=== PATIENT | female | born 1955 | race Caucasian/White ===

== ENCOUNTER → 2016-06-05 | Outpatient (CLI) | payer OTHER ==
[2016-06-05 17:14] LABS: HSV I IgG Interp POSITIVE (NEGATIVE); HSV II IgG Interp NEGATIVE (NEGATIVE)
== END | disposition home or self-care (01) ==
LOC: LABWHC1 10:17
PROVIDERS: ATTEND Obstetrics & Gynecology
DX: N76.2 Acute vulvitis (principal)
CPT/HCPCS: 36415; 86694; 86695; 86696

== ENCOUNTER → 2016-11-17 | Outpatient (CLI) | payer OTHER ==
--- NOTE | 2016-11-21 07:36 | MM ---
Reason for exam: screening (asymptomatic). Last mammogram was performed 2 years and 2 months ago. History: Patient is postmenopausal. Family history of premenopausal breast cancer in 2 maternal aunts and breast cancer in paternal grandmother. Benign stereotactic core biopsy of the left breast, September 27, 1999. Benign stereotactic core biopsy of the right breast, September 27, 1999. Core biopsy of the left breast. Core biopsy of the right breast. Excisional biopsy of the left breast. Took hormonal contraceptives for 10 years beginning at age 14. Physical Findings: A clinical breast exam by your physician is recommended on an annual basis and results should be correlated with mammographic findings. MG 3D Screening Mammo W/Cad Bilateral CC and MLO view(s) were taken. Prior study comparison: September 25, 2014, bilateral MG diagnostic mammo w CAD KATE. September 18, 2013, right breast MG work up mamm w CAD RT. The breast tissue is heterogeneously dense. This may lower the sensitivity of mammography. Finding: There are stable typically benign calcifications in both breasts. Bilateral biopsy markers. No significant changes in finding since September 25, 2014 and September 18, 2013. ASSESSMENT: Benign, BI-RAD 2 RECOMMENDATION: Routine screening mammogram of both breasts in 1 year.
== END | disposition home or self-care (01) ==
LOC: RADMAMWWP 09:54
PROVIDERS: ATTEND Family Medicine
DX: Z12.31 Encounter for screening mammogram for malignant neoplasm of breast (principal)
CPT/HCPCS: 77063; G0202

== ENCOUNTER 2018-06-19 19:34 | Inpatient (IN) | payer MEDICARE, OTHER ==
[2018-06-19] MEDS ORDERED: SODIUM CHLORIDE 0.9% 1,000 ML IV STA (20:56)
[2018-06-19] MEDS ORDERED: HYDROmorphone 0.5 MG/0.5 ML SYRINGE IVP STA (20:56)
[2018-06-19] MEDS ORDERED: KETOROLAC 30 MG/ML 1 ML VIAL IVP STA (20:56)
[2018-06-19] MEDS ORDERED: ONDANSETRON 4 MG/2 ML VIAL IVP STA ×2 (21:22→22:02)
--- NOTE | 2018-06-19 21:24 | ED ---
Abdominal Pain HPI - General Chief Complaint: Abdominal Pain Stated Complaint: Kidney infection, vomiting Time Seen by Provider: 06/19/18 20:43 Source: patient Mode of arrival: wheelchair Limitations: no limitations - History of Present Illness Initial Comments: 63-year-old female patient presents to the emergency department today for evaluation of left flank pain, left-sided abdominal pain, and vomiting. Patient states she was seen and evaluated by both the emergency department at [facility] in her primary care physician for similar symptoms approximately 8 days ago. She was diagnosed with a kidney infection and started on Cipro. States she started this medication on Sunday was starting to feel better than today symptoms returned. She does report hematuria. Patient states that she has been unable to keep down any food or fluids since early this morning. Vomitus is bilious. She denies any hematochezia or melena. Denies any known fevers but states she is chilled. Patient denies any recent rash, shortness breath, chest pain, numbness, tingling, dizziness, weakness, headache, visual changes, or any other complaints. - Related Data Home Medications Medication Instructions Recorded Confirmed ALPRAZolam [Xanax] 1 mg PO HS 01/09/15 06/19/18 QUEtiapine [SEROquel] 50 mg PO HS 01/09/15 06/19/18 Nadolol [Corgard] 50 mg PO HS 03/02/15 06/19/18 Ciprofloxacin HCl [Cipro] 500 mg PO BID 06/19/18 06/19/18 Allergies Allergy/AdvReac Type Severity Reaction Status Date / Time Anesthetics - Amide Type Allergy Nausea Verified 06/19/18 21:31 meperidine HCl [From Demerol] AdvReac Nausea & Verified 06/19/18 21:31 Vomiting morphine AdvReac Nausea & Verified 06/19/18 21:31 Vomiting Review of Systems ROS Statement: Those systems with pertinent positive or pertinent negative responses have been documented in the HPI. ROS Other: All systems not noted in ROS Statement are negative. Past Medical History Past Medical History: GERD/Reflux, Hypertension, Osteoarthritis (OA), Sleep Apnea/CPAP/BIPAP Additional Past Medical History / Comment(s): lyme disease, just started taking something for BP & tachycardia, had stress test today, hx. kidney stones History of Any Multi-Drug Resistant Organisms: None Reported Past Surgical History: Cholecystectomy, Hysterectomy, Orthopedic Surgery, Tonsillectomy Additional Past Surgical History / Comment(s): right foot surgery 2012, right knee, rotator cuff repair Past Anesthesia/Blood Transfusion Reactions: Previous Problems w/ Anesthesia, Postoperative Nausea & Vomiting (PONV) Additional Past Anesthesia/Blood Transfusion Reaction / Comment(s): elevated BP w/anesthesia per pt. Past Psychological History: Bipolar Smoking Status: Never smoker - Past Family History Father Family Medical History: Cancer General Exam Limitations: no limitations General appearance: alert, in no apparent distress, other (This is a well- developed, well-nourished adult female patient in no acute distress. Vital signs upon presentation are temperature 98.8F, pulse 82, respirations 18, blood pressure 115/82, pulse ox 100% on room air.) Eye exam: Present: normal appearance, PERRL, EOMI. Absent: scleral icterus, conjunctival injection, periorbital swelling ENT exam: Present: normal exam, normal oropharynx, mucous membranes moist Respiratory exam: Present: normal lung sounds bilaterally. Absent: respiratory distress, wheezes, rales, rhonchi, stridor Cardiovascular Exam: Present: regular rate, normal rhythm, normal heart sounds. Absent: systolic murmur, diastolic murmur, rubs, gallop, clicks GI/Abdominal exam: Present: soft, tenderness (Left lower quadrant tenderness), normal bowel sounds. Absent: distended, guarding, rebound, rigid Back exam: Present: normal inspection, CVA tenderness (L). Absent: CVA tenderness (R) Neurological exam: Present: alert, oriented X3, CN II-XII intact Psychiatric exam: Present: normal affect, normal mood Skin exam: Present: warm, dry, intact, normal color. Absent: rash Course Vital Signs 06/19/18 06/19/18 20:15 23:22 Temperature 98.8 F Pulse Rate 82 87 Respiratory 18 20 Rate Blood Pressure 115/82 152/80 O2 Sat by Pulse 100 96 Oximetry Medical Decision Making - Medical Decision Making 63-year-old female patient presents to the emergency department today for evaluation of left flank and left-sided abdominal pain, vomiting with recent diagnosis of urinary tract infection. Physical examination did reveal left flank tenderness and left lower quadrant tenderness. Labs reviewed and did reveal elevated white blood cell count at 11.1, BUN 20, creatinine 1.10, lactic acid 3.4. Urinalysis did show trace protein, 1+ ketones, trace amount of blood, large leukocyte esterase, 9 red blood cells, 19 white blood cells, rare bacteria, and occasional mucous. Did obtain CT abdomen and pelvis to rule out septic kidney stone, this showed no acute abdominal abnormalities. Upon reeval uation patient reports she is still having abdominal and flank discomfort. She is still feeling nauseated despite administration of 2 doses of Zofran. Given lab findings and apparent failed outpatient treatment of urinary tract infection we'll admit to the hospital for IV antibiotics and IV hydration. She'll be admitted to Dr. Negrete who covers for Dr. Blevins. - Lab Data Result diagrams: 06/19/18 21:00 06/19/18 21:00 Lab Results 06/19/18 06/19/18 06/19/18 Range/Units 21:00 21:00 21:00 WBC 11.1 H (3.8-10.6) k/uL RBC 5.22 (3.80-5.40) m/uL Hgb 16.5 H (11.4-16.0) gm/dL Hct 50.7 H (34.0-46.0) % MCV 97.0 (80.0-100.0) fL MCH 31.5 (25.0-35.0) pg MCHC 32.5 (31.0-37.0) g/dL RDW 12.3 (11.5-15.5) % Plt Count 382 (150-450) k/uL Neutrophils % 75 % Lymphocytes % 16 % Monocytes % 6 % Eosinophils % 1 % Basophils % 1 % Neutrophils # 8.3 H (1.3-7.7) k/uL Lymphocytes # 1.7 (1.0-4.8) k/uL Monocytes # 0.7 (0-1.0) k/uL Eosinophils # 0.1 (0-0.7) k/uL Basophils # 0.1 (0-0.2) k/uL Sodium 143 (137-145) mmol/L Potassium 4.5 (3.5-5.1) mmol/L Chloride 109 H (98-107) mmol/L Carbon Dioxide 18 L (22-30) mmol/L Anion Gap 16 mmol/L BUN 20 H (7-17) mg/dL Creatinine 1.10 H (0.52-1.04) mg/dL Est GFR (CKD-EPI)AfAm 61 (>60 ml/min/1.73 sqM) Est GFR (CKD-EPI)NonAf 53 (>60 ml/min/1.73 sqM) Glucose 128 H (74-99) mg/dL Plasma Lactic Acid Asif 3.4 H* (0.7-2.0) mmol/L Calcium 10.8 H (8.4-10.2) mg/dL Total Bilirubin 0.8 (0.2-1.3) mg/dL AST 29 (14-36) U/L ALT 28 (9-52) U/L Alkaline Phosphatase 102 (38-126) U/L Troponin I (0.000-0.034) ng/mL Total Protein 8.7 H (6.3-8.2) g/dL Albumin 5.1 H (3.5-5.0) g/dL Amylase 121 H (30-110) U/L Lipase 272 (23-300) U/L Urine Color Urine Appearance (Clear) Urine pH (5.0-8.0) Ur Specific Spring (1.001-1.035) Urine Protein (Negative) Urine Glucose (UA) (Negative) Urine Ketones (Negative) Urine Blood (Negative) Urine Nitrite (Negative) Urine Bilirubin (Negative) Urine Urobilinogen (<2.0) mg/dL Ur Leukocyte Esterase (Negative) Urine RBC (0-5) /hpf Urine WBC (0-5) /hpf Ur Squamous Epith Cells (0-4) /hpf Urine Bacteria (None) /hpf Urine Mucus (None) /hpf 06/19/18 06/19/18 Range/Units 21:00 22:34 WBC (3.8-10.6) k/uL RBC (3.80-5.40) m/uL Hgb (11.4-16.0) gm/dL Hct (34.0-46.0) % MCV (80.0-100.0) fL MCH (25.0-35.0) pg MCHC (31.0-37.0) g/dL RDW (11.5-15.5) % Plt Count (150-450) k/uL Neutrophils % % Lymphocytes % % Monocytes % % Eosinophils % % Basophils % % Neutrophils # (1.3-7.7) k/uL Lymphocytes # (1.0-4.8) k/uL Monocytes # (0-1.0) k/uL Eosinophils # (0-0.7) k/uL Basophils # (0-0.2) k/uL Sodium (137-145) mmol/L Potassium (3.5-5.1) mmol/L Chloride (98-107) mmol/L Carbon Dioxide (22-30) mmol/L Anion Gap mmol/L BUN (7-17) mg/dL Creatinine (0.52-1.04) mg/dL Est GFR (CKD-EPI)AfAm (>60 ml/min/1.73 sqM) Est GFR (CKD-EPI)NonAf (>60 ml/min/1.73 sqM) Glucose (74-99) mg/dL Plasma Lactic Acid Asif (0.7-2.0) mmol/L Calcium (8.4-10.2) mg/dL Total Bilirubin (0.2-1.3) mg/dL AST (14-36) U/L ALT (9-52) U/L Alkaline Phosphatase (38-126) U/L Troponin I <0.012 (0.000-0.034) ng/mL Total Protein (6.3-8.2) g/dL Albumin (3.5-5.0) g/dL Amylase (30-110) U/L Lipase (23-300) U/L Urine Color Yellow Urine Appearance Clear (Clear) Urine pH 7.5 (5.0-8.0) Ur Specific Spring 1.012 (1.001-1.035) Urine Protein Trace H (Negative) Urine Glucose (UA) Negative (Negative) Urine Ketones 1+ H (Negative) Urine Blood Trace H (Negative) Urine Nitrite Negative (Negative) Urine Bilirubin Negative (Negative) Urine Urobilinogen <2.0 (<2.0) mg/dL Ur Leukocyte Esterase Large H (Negative) Urine RBC 9 H (0-5) /hpf Urine WBC 19 H (0-5) /hpf Ur Squamous Epith Cells 3 (0-4) /hpf Urine Bacteria Rare H (None) /hpf Urine Mucus Occasional H (None) /hpf - Radiology Data Radiology results: report reviewed, image reviewed CT abdomen and pelvis without contrast was obtained. Report was reviewed in its entirety. Impression by Dr. Kevin shows no acute intra-abdominal findings. Disposition Clinical Impression: Urinary tract infection, Intractable back pain, Dehydration Disposition: ADMITTED IP TO THIS [facility] Condition: Serious Referrals: Jerald Blevins MD [Primary Care Provider] - 1-2 days Decision to Admit Reason: Admit from EC Decision Date: 06/20/18 Decision Time: 00:21
[2018-06-19 21:48] LABS: Basophils # (A) 0.1 k/uL (0-0.2); Basophils % (A) 1 %; Eosinophils # (A) 0.1 k/uL (0-0.7); Eosinophils % (A) 1 %; HCT 50.7 % (34.0-46.0); HGB 16.5 gm/dL (11.4-16.0); Lymphocytes # (A) 1.7 k/uL (1.0-4.8); Lymphocytes % (A) 16 %; MCH 31.5 pg (25.0-35.0); MCHC 32.5 g/dL (31.0-37.0); Mean Platelet Volume 6.4; Monocytes # (A) 0.7 k/uL (0-1.0); Monocytes % (A) 6 %; Neutrophils # (A) 8.3 k/uL (1.3-7.7); Neutrophils % (A) 75 %; Platelet Count 382 k/uL (150-450); RBC 5.22 m/uL (3.80-5.40); RDW 12.3 % (11.5-15.5); WBC 11.1 k/uL (3.8-10.6)
[2018-06-19] MEDS ORDERED: HYDROmorphone 2 MG/ML 1 ML SYRINGE IVP STA (22:02)
[2018-06-19 22:03] LABS: Albumin 5.1 g/dL (3.5-5.0); Calcium 10.8 mg/dL (8.4-10.2); Potassium 4.5 mmol/L (3.5-5.1); Total Bilirubin 0.8 mg/dL (0.2-1.3); Total Protein 8.7 g/dL (6.3-8.2)
--- NOTE | 2018-06-19 22:21 | CT ---
EXAM: CT Abdomen and Pelvis Without Intravenous Contrast CLINICAL HISTORY: ITS.REASON CT Reason: Pain TECHNIQUE: Axial computed tomography images of the abdomen and pelvis without intravenous contrast. CTDI is 9 mGy and DLP is 514 mGy-cm. This CT exam was performed using one or more of the following dose reduction techniques: automated exposure control, adjustment of the mA and/or kV according to patient size, and/or use of iterative reconstruction technique. Coronal and sagittal reformatted images were created and reviewed. COMPARISON: No relevant prior studies available. FINDINGS: Lung bases: Lower lung atelectasis. Mediastinum: Small hiatal hernia. ABDOMEN: Liver: Unremarkable. Gallbladder and bile ducts: Cholecystectomy. No ductal dilation. Pancreas: Slight fat infiltration of the proximal pancreas. No ductal dilatation. Spleen: Unremarkable. No splenomegaly. Adrenals: Unremarkable. No mass. Kidneys and ureters: Unremarkable. No obstructing stones. No hydronephrosis. Stomach and bowel: Mild colonic diverticulosis. No evidence to suggest acute diverticulitis. Underdistended appearance to the descending colon. The small bowel has a normal course and caliber. PELVIS: Appendix: No findings to suggest acute appendicitis. Bladder: Unremarkable. No stones. Reproductive: Hysterectomy. ABDOMEN and PELVIS: Intraperitoneal space: Unremarkable. No free air. No significant fluid collection. Bones/joints: Multilevel disc space height loss and osteophytosis. Chronic minimal retrolisthesis L4-5 and anterolisthesis L5-S1. Multilevel facet arthropathy in the lower lumbar spine. No acute fracture. No dislocation. Soft tissues: Unremarkable. Vasculature: Unremarkable. No abdominal aortic aneurysm. Lymph nodes: Unremarkable. No enlarged lymph nodes. IMPRESSION: 1. No acute intra-abdominal findings.
[2018-06-19 23:02] LABS: Appearance,Urine Clear (Clear); Bacteria,Urine Rare /hpf; Bilirubin,Urine Negative (Negative); Blood,Urine Trace (Negative); Color,Urine Yellow; Glucose,Urine (UA) Negative (Negative); Ketones,Urine 1+ (Negative); Leukocyte Esterase,Urine Large (Negative); Mucus,Urine Occasional /hpf; Nitrite,Urine Negative (Negative); PH, Urine 7.5 (5.0-8.0); Protein,Urine Trace (Negative); RBC,Urine 9 /hpf (0-5); Specific Gravity,Urine 1.012 (1.001-1.035); Squamous Epithelial Cell,Urine 3 /hpf (0-4); Urobilinogen,Urine <2.0 mg/dL (<2.0); WBC,Urine 19 /hpf (0-5)
[2018-06-19] MEDS ORDERED: SODIUM CHLORIDE 0.9% 1,000 ML IV ONE (23:12)
[2018-06-20] MEDS ORDERED: ONDANSETRON 4 MG/2 ML VIAL IVP PRN (00:15)
[2018-06-20] MEDS ORDERED: NALOXONE 0.4 MG/ML 1 ML VIAL IV PRN (00:15)
[2018-06-20] MEDS ORDERED: FAMOTIDINE 20 MG/2 ML VIAL IV STA (00:16)
[2018-06-20] MEDS: QUEtiapine 25 MG TAB PO SCH ×2 (00:56→21:08)
[2018-06-20] MEDS ORDERED: ALPRAZolam 1 MG TAB PO STA (00:57)
[2018-06-20] MEDS ORDERED: NADOLOL 20 MG TAB PO STA (01:08)
[2018-06-20 01:38] VITALS: BMI 29.5
[2018-06-20] MEDS: HYDROmorphone 1 MG/ML 1 ML SYRINGE IVP PRN ×6 (02:00→22:51)
[2018-06-20] MEDS: SODIUM CHLORIDE 0.9% 1,000 ML IV SCH ×2 (02:08→16:19)
[2018-06-20] MEDS ORDERED: ACETAMINOPHEN TAB 325 MG TAB PO PRN (13:46)
--- NOTE | 2018-06-20 13:49 | P.HPIM ---
History of Present Illness H&P Date: 06/20/18 Chief Complaint: Left flank pain, UTI This is a 63-year-old female patient of Dr. Blevins with past medical history of gastroesophageal reflux disease, hypertension, osteoarthritis, obstructive sleep apnea, Lyme disease, kidney stones, frequent urinary tract infections. Patient states that she saw Dr. Hidalgo last week for UTI and was sent to [facility] she was also having severe pain in her left flank and hip area. She states that approximately 12 days ago she tripped over a suitcase will she was in [place] and ended up jamming her left knee causing pain in her hip. She has been undergoing massage with minimal improvement. She went to [facility] on Sunday to the ER and had x-rays done of her hip that showed osteopenia. They did do a urine test at that time and she was called on Sunday, June 25 that she had a urinary tract infection. She states she has about one urinary tract infection per year but this was more frequent in the past. She has been taking ciprofloxacin. She states she still had a low- grade fever and chills on and off all week. She complains of nausea. She states her urine is pink in color. She has follow-up with Dr. Zhang in the past for kidney stones and has been told that she would always have blood in her urine. She denies any pain with urination or incontinence. She does complain of increased frequency. She also complains of pain when she sits on the toilet in her left hip area. Since admission, patient states that she is feeling a little bit better she does have some nausea at this time that is improved with medication. Patient came into [facility] emergency center for evaluation. Patient has been afebrile, heart rate in the 80s, blood pressure 115/82, pulse ox 100%. White count is 11.2, BUN 20, creatinine 1.1, lactic acid 3.4. Urinalysis was trace protein, 1+ ketones, trace blood, large leukoesterase, 9 RBCs, 19 wbc's, rare bacteria, occasional mucus. CAT scan of the abdomen and pelvis was done that showed no acute abdominal abnormalities. She was started on IV Zofran, ceftriaxone, Dilaudid for pain, 2 L of IV fluid. Repeat lactic acid 1.0. Review of Systems All systems: negative Constitutional: Reports chills, Reports fatigue, Reports fever, Reports poor appetite, Reports weakness Eyes: denies blurred vision, denies pain Ears, nose, mouth and throat: Denies dysphagia, Denies headache, Denies nasal congestion, Denies nasal discharge, Denies sore throat, Denies vertigo Cardiovascular: Denies chest pain, Denies decreased exercise tolerance, Denies dyspnea on exertion, Denies edema, Denies leg edema, Denies lightheadedness, Denies shortness of breath, Denies syncope Respiratory: Denies cough, Denies cough with sputum, Denies dyspnea, Denies excessive sputum, Denies hemoptysis, Denies home oxygen, Denies wheezing Gastrointestinal: Reports loss of appetite, Reports nausea, Denies abdominal pain, Denies diarrhea, Denies vomiting Genitourinary: Reports flank pain, Reports urinary frequency, Denies dysuria, Denies hematuria, Denies stress incontinence, Denies urge incontinence, Denies urgency Musculoskeletal: Denies frequent falls, Denies gait dysfunction, Denies myalgias Integumentary: Denies pruritus, Denies rash, Denies wounds Neurological: Denies aphasia, Denies change in mentation, Denies change in speech, Denies confusion, Denies head injury, Denies headaches, Denies numbness, Denies seizures, Denies vertigo, Denies weakness Psychiatric: Denies anxiety, Denies depression Endocrine: Denies fatigue, Denies weight change Past Medical History Past Medical History: GERD/Reflux, Hypertension, Osteoarthritis (OA), Sleep Apnea/CPAP/BIPAP Additional Past Medical History / Comment(s): lyme disease, kidney stones History of Any Multi-Drug Resistant Organisms: None Reported Past Surgical History: Cholecystectomy, Hysterectomy, Orthopedic Surgery, Tonsillectomy Additional Past Surgical History / Comment(s): right foot surgery 2011, bilateral knee, rotator cuff repair, nose surgery Past Anesthesia/Blood Transfusion Reactions: Previous Problems w/ Anesthesia, Postoperative Nausea & Vomiting (PONV) Additional Past Anesthesia/Blood Transfusion Reaction / Comment(s): elevated BP w/anesthesia per pt. Past Psychological History: Bipolar Smoking Status: Never smoker Past Alcohol Use History: Occasional Past Drug Use History: None Reported - Past Family History Mother Family Medical History: Hypertension, Thyroid Disorder Sister(s) Family Medical History: Hypertension, Thyroid Disorder Additional Family Medical History / Comment(s): crohns Father Family Medical History: Cancer Medications and Allergies Home Medications Medication Instructions Recorded Confirmed Type ALPRAZolam [Xanax] 1 mg PO HS 01/09/15 06/19/18 History QUEtiapine [SEROquel] 25 mg PO HS 01/09/15 06/20/18 History Nadolol [Corgard] 50 mg PO HS 03/02/15 06/19/18 History Ciprofloxacin HCl [Cipro] 500 mg PO BID 06/19/18 06/19/18 History Allergies Allergy/AdvReac Type Severity Reaction Status Date / Time Anesthetics - Amide Type Allergy Nausea Verified 06/19/18 21:31 meperidine HCl [From Demerol] AdvReac Nausea & Verified 06/19/18 21:31 Vomiting morphine AdvReac Nausea & Verified 06/19/18 21:31 Vomiting Physical Exam Vitals: Vital Signs Temp Pulse Pulse Resp BP BP Pulse Ox 06/20/18 08:40 97.4 F L 59 L 20 100/65 99 06/20/18 01:17 97.6 F 77 16 155/82 100 06/20/18 01:01 86 18 164/93 100 06/19/18 23:22 87 20 152/80 96 06/19/18 20:15 98.8 F 82 18 115/82 100 Intake and Output 06/19/18 06/20/18 06/20/18 22:59 06:59 14:59 Output Total 350 Balance -350 Output: Urine 350 Other: Voiding Method Toilet Toilet Weight 80.739 kg 83.1 kg Gen: This is a 63-year-old female. She is resting in bed and appears to be comfortable. No acute distress is noted. Patient does have pain to the left hip flank area with any movement. HEENT: Head is atraumatic, normocephalic. Pupils equal, round. Sclerae is anicteric. NECK: Supple. No JVD. No lymphadenopathy. No thyromegaly. LUNGS: Clear to auscultation. No wheezes or rhonchi. No intercostal retractions. HEART: Regular rate and rhythm. No murmur. ABDOMEN: Soft. Bowel sounds are present. No masses. No tenderness. Left CVA tenderness EXTREMITIES: No pedal edema. No calf tenderness. Dorsalis pedis +2 bilaterally. Tenderness to the left hip. NEUROLOGICAL: Patient is awake, alert and oriented x3. Cranial nerves 2 through 12 are grossly intact. Results CBC & Chem 7: 06/19/18 21:00 06/19/18 21:00 Labs: Abnormal Lab Results - Last 24 Hours (Table) 06/19/18 06/19/18 06/19/18 Range/Units 21:00 21:00 21:00 WBC 11.1 H (3.8-10.6) k/uL Hgb 16.5 H (11.4-16.0) gm/dL Hct 50.7 H (34.0-46.0) % Neutrophils # 8.3 H (1.3-7.7) k/uL Chloride 109 H (98-107) mmol/L Carbon Dioxide 18 L (22-30) mmol/L BUN 20 H (7-17) mg/dL Creatinine 1.10 H (0.52-1.04) mg/dL Glucose 128 H (74-99) mg/dL Plasma Lactic Acid Asif 3.4 H* (0.7-2.0) mmol/L Calcium 10.8 H (8.4-10.2) mg/dL Total Protein 8.7 H (6.3-8.2) g/dL Albumin 5.1 H (3.5-5.0) g/dL Amylase 121 H (30-110) U/L Urine Protein (Negative) Urine Ketones (Negative) Urine Blood (Negative) Ur Leukocyte Esterase (Negative) Urine RBC (0-5) /hpf Urine WBC (0-5) /hpf Urine Bacteria (None) /hpf Urine Mucus (None) /hpf 06/19/18 Range/Units 22:34 WBC (3.8-10.6) k/uL Hgb (11.4-16.0) gm/dL Hct (34.0-46.0) % Neutrophils # (1.3-7.7) k/uL Chloride (98-107) mmol/L Carbon Dioxide (22-30) mmol/L BUN (7-17) mg/dL Creatinine (0.52-1.04) mg/dL Glucose (74-99) mg/dL Plasma Lactic Acid Asif (0.7-2.0) mmol/L Calcium (8.4-10.2) mg/dL Total Protein (6.3-8.2) g/dL Albumin (3.5-5.0) g/dL Amylase (30-110) U/L Urine Protein Trace H (Negative) Urine Ketones 1+ H (Negative) Urine Blood Trace H (Negative) Ur Leukocyte Esterase Large H (Negative) Urine RBC 9 H (0-5) /hpf Urine WBC 19 H (0-5) /hpf Urine Bacteria Rare H (None) /hpf Urine Mucus Occasional H (None) /hpf Thrombosis Risk Factor Assmnt - DVT/VTE Prophylaxis DVT/VTE Prophylaxis: Pharmacologic Prophylaxis ordered - Choose All That Apply Each Factor Represents 1 point: Obesity (BMI >25) Each Risk Factor Represents 2 Points: Age 61-74 years Thrombosis Risk Factor Assessment Total Risk Factor Score: 3 Thrombosis Risk Factor Assessment Level: Moderate Risk Assessment and Plan Plan: 1. UTI and lactic acidosis and possible left-sided pyelonephritis, failed outpatient treatment. Patient is status post 2 L of IV fluid with resolution of lactic acidosis. Patient will be maintained on ceftriaxone. Repeat urine culture will be requested. Will review lab reports from [facility]. Renal ultrasound ordered. Continue IV fluids at 75 mL per hour. Start soft diet and advance as tolerated. Blood culture is status post received. 2. Intractable left hip secondary to recent fall. Flexeril 5 mg 3 times daily as needed. 3. Hypertension. Continue Corgard 59 g at bedtime. 4. Obstructive sleep apnea. 5. Gastroesophageal reflux disease. Continue Pepcid. 6. Bipolar disorder. Continue Seroquel 25 mg at bedtime. 7. DVT prophylaxis. Lovenox subcu. Patient will be admitted to the hospital for a minimum of 2 night stay. Discharge plan: Return home Impression and plan of care have been directed as dictated by the signing physician. Griselda Kay nurse practitioner acting as scribe for signing physician.
--- NOTE | 2018-06-20 14:18 | US ---
EXAMINATION TYPE: US kidneys/renal and bladder DATE OF EXAM: 06/20/2018 COMPARISON: CT abdomen and pelvis from yesterday. CLINICAL HISTORY: pyelonephritis. Pyelonephritis; Hx of kidney stones. EXAM MEASUREMENTS: Right Kidney: 9.7 x 4.4 x 5.8 cm Left Kidney: 9.6 x 5.5 x 4.3 cm Right Kidney: Ureteral pelvis: 1.15 cm (NL= 10 mm). Left Kidney: No hydronephrosis or masses seen Bladder: Not fully distended. Bilateral Jets seen: Not seen after 3 minute observation. Post Void Residual: Post-void volume not performed. No nephrolithiasis is seen. No masses are identified. The urinary bladder is poorly distended and thus suboptimally evaluated. There is mild prominence of right renal pelvis without significant calyceal dilatation. No left-sided hydronephrosis is present. IMPRESSION: No hydronephrosis is present bilaterally. Suboptimal evaluation of bladder due to poor distention.
[2018-06-20] MEDS: CYCLOBENZAPRINE 5 MG TAB PO PRN (19:16)
[2018-06-20] MEDS ORDERED: NADOLOL 20 MG TAB PO SCH (21:00)
[2018-06-20] MEDS ORDERED: ALPRAZolam 1 MG TAB PO SCH (21:00)
[2018-06-20] MEDS ORDERED: QUEtiapine 50 MG TAB PO SCH (21:00)
[2018-06-21] MEDS: CYCLOBENZAPRINE 5 MG TAB PO PRN ×2 (03:24→11:11)
[2018-06-21] MEDS: SODIUM CHLORIDE 0.9% 1,000 ML IV SCH ×2 (03:24→09:16)
[2018-06-21] MEDS: HYDROmorphone 1 MG/ML 1 ML SYRINGE IVP PRN ×2 (03:25→06:54)
[2018-06-21 06:58] LABS: Basophils % (A) 1 %; Eosinophils # (A) 0.1 k/uL (0-0.7); Eosinophils % (A) 2 %; HCT 32.3 % (34.0-46.0); Lymphocytes # (A) 2.2 k/uL (1.0-4.8); Lymphocytes % (A) 39 %; MCH 33.1 pg (25.0-35.0); MCHC 33.4 g/dL (31.0-37.0); Mean Platelet Volume 6.1; Monocytes # (A) 0.3 k/uL (0-1.0); Monocytes % (A) 6 %; Neutrophils # (A) 2.9 k/uL (1.3-7.7); Neutrophils % (A) 51 %; Platelet Count 257 k/uL (150-450); RBC 3.26 m/uL (3.80-5.40); RDW 12.4 % (11.5-15.5); WBC 5.6 k/uL (3.8-10.6)
[2018-06-21 07:03] LABS: HGB 10.8 gm/dL (11.4-16.0)
[2018-06-21 07:10] LABS: Albumin 3.1 g/dL (3.5-5.0); Calcium 8.2 mg/dL (8.4-10.2); Potassium 4.1 mmol/L (3.5-5.1); Total Bilirubin 0.2 mg/dL (0.2-1.3); Total Protein 5.4 g/dL (6.3-8.2)
[2018-06-21] MEDS ORDERED: FAMOTIDINE 20 MG TAB PO SCH (09:00)
[2018-06-21] MEDS ORDERED: ENOXAPARIN 40 MG/0.4 ML SYRINGE SQ SCH (09:00)
[2018-06-21 09:04] VITALS: BP 117/76; PULSE 61; RESP 20; TEMP 98.2
--- NOTE | 2018-06-21 11:18 | P.DS ---
Providers Date of admission: 06/20/18 00:10 Expected date of discharge: 06/21/18 Attending physician: Marcella Negrete Primary care physician: Jerald Blevins [facility] Course: This is a 63-year-old female patient of Dr. Blevins with past medical history of gastroesophageal reflux disease, hypertension, osteoarthritis, obstructive sleep apnea, Lyme disease, kidney stones, frequent urinary tract infections. Patient states that she saw Dr. Hidalgo last week for UTI and was sent to [facility] she was also having severe pain in her left flank and hip area. She states that approximately 12 days ago she tripped over a suitcase will she was in [place] and ended up jamming her left knee causing pain in her hip. She has been undergoing massage with minimal improvement. She went to [facility] on Sunday to the ER and had x-rays done of her hip that showed osteopenia. They did do a urine test at that time and she was called on June 25 that she had a urinary tract infection. She states she has about one urinary tract infection per year but this was more frequent in the past. She has been taking ciprofloxacin. She states she still had a low- grade fever and chills on and off all week. She complains of nausea. She states her urine is pink in color. She has follow-up with Dr. Zhang in the past for kidney stones and has been told that she would always have blood in her urine. She denies any pain with urination or incontinence. She does complain of increased frequency. She also complains of pain when she sits on the toilet in her left hip area. Since admission, patient states that she is feeling a little bit better she does have some nausea at this time that is improved with medication. Patient came into [facility] emergency center for evaluation. Patient has been afebrile, heart rate in the 80s, blood pressure 115/82, pulse ox 100%. White count is 11.2, BUN 20, creatinine 1.1, lactic acid 3.4. Urinalysis was trace protein, 1+ ketones, trace blood, large leukoesterase, 9 RBCs, 19 wbc's, rare bacteria, occasional mucus. CAT scan of the abdomen and pelvis was done that showed no acute abdominal abnormalities. She was started on IV Zofran, ceftriaxone, Dilaudid for pain, 2 L of IV fluid. Repeat lactic acid 1.0. 06/21: Patient has been afebrile, heart rate in the 60s, blood pressure 117/76. Pulse ox 94% on room air. White count is normal at 5.6, hemoglobin 10.8, creatinine 0.87. Urine culture was reviewed from [facility] which was obtained on June 12 which was positive for rate of than 100,000 colonies of Klebsiella pneumoniae only resistant to ampicillin and nitrofurantoin. Patient continues to complain of left hip flank pain most likely secondary to the hip injury from recent fall. Patient will be discharged home today and to continue her ciprofloxacin which she has at home until completion. Patient will also be given prescription for Flexeril and Toradol. Patient has been instructed to not take any other anti-inflammatory medications while on Toradol. GI prophylaxis has been added. Patient will be discharged home today in stable condition. Discharge diagnoses: 1. UTI and lactic acidosis and possible left-sided pyelonephritis, failed outpatient treatment. 2. Intractable left hip secondary to recent fall. 3. Hypertension. 4. Obstructive sleep apnea. 5. Gastroesophageal reflux disease. 6. Bipolar disorder. Discharge plan: Return home Impression and plan of care have been directed as dictated by the signing physician. Griselda Kay nurse practitioner acting as scribe for signing physician. Patient Condition at Discharge: Good Plan - Discharge Summary Discharge Rx Participant: Yes New Discharge Prescriptions: New Cyclobenzaprine [Flexeril] 5 mg PO TID PRN #90 tab PRN Reason: Muscle Spasm Famotidine [Pepcid] 20 mg PO DAILY tab Ketorolac [Toradol] 10 mg PO Q6HR #20 tab Continue QUEtiapine [SEROquel] 25 mg PO HS ALPRAZolam [Xanax] 1 mg PO HS Nadolol [Corgard] 50 mg PO HS Ciprofloxacin HCl [Cipro] 500 mg PO BID Discharge Medication List ALPRAZolam [Xanax] 1 mg PO HS 01/09/15 [History] QUEtiapine [SEROquel] 25 mg PO HS 01/09/15 [History] Nadolol [Corgard] 50 mg PO HS 03/02/15 [History] Ciprofloxacin HCl [Cipro] 500 mg PO BID 06/19/18 [History] Cyclobenzaprine [Flexeril] 5 mg PO TID PRN #90 tab 06/21/18 [Rx] Famotidine [Pepcid] 20 mg PO DAILY tab 06/21/18 [Rx] Ketorolac [Toradol] 10 mg PO Q6HR #20 tab 06/21/18 [Rx] Follow up Appointment(s)/Referral(s): Jerald Blevins MD [Primary Care Provider] - 06/27/18 8:30 am Activity/Diet/Wound Care/Special Instructions: Continue diet as tolerated. fluids are always encouarged. Take antibiotics as prescribed by physician until dose is complete. Take a probiotic and or eat yogurt to help with tummy upset from antibiotics. Do not drive while taking Flexeril. Continue Pepcid while on Toradol. Then discontinue. Do not mix nonsteroidal anti-inflammatories with Toradol. Call physician with any questions comments concerns worsening returning symptoms, fever 101.1 or higher, not tolerating diet not tolerated fluids. Discharge Disposition: HOME SELF-CARE
== END 2018-06-21 12:40 | disposition home or self-care (01) | DRG 690 ==
LOC: EC 19:34 → 6PED 06-20 00:10
PROVIDERS: ADMIT Family Medicine; ATTEND Family Medicine
DX: N39.0 Urinary tract infection, site not specified (principal); E87.2 Acidosis; E86.0 Dehydration; F31.9 Bipolar disorder, unspecified; G47.33 Obstructive sleep apnea (adult) (pediatric); I10 Essential (primary) hypertension; K21.9 Gastro-esophageal reflux disease without esophagitis; M85.80 Other specified disorders of bone density and structure, unspecified site; M19.90 Unspecified osteoarthritis, unspecified site; R31.9 Hematuria, unspecified; R10.9 Unspecified abdominal pain; M25.552 Pain in left hip; Z79.899 Other long term (current) drug therapy; Z87.440 Personal history of urinary (tract) infections; Z87.442 Personal history of urinary calculi; Z90.710 Acquired absence of both cervix and uterus; Z90.49 Acquired absence of other specified parts of digestive tract; Z88.4 Allergy status to anesthetic agent; Z88.5 Allergy status to narcotic agent; Z88.8 Allergy status to other drugs, medicaments and biological substances; Z82.49 Family history of ischemic heart disease and other diseases of the circulatory system; Z80.9 Family history of malignant neoplasm, unspecified; Z83.49 Family history of other endocrine, nutritional and metabolic diseases; Z83.79 Family history of other diseases of the digestive system; W19.XXXA Unspecified fall, initial encounter
CPT/HCPCS: 36415; 74176; 76770; 80053; 81001; 82150; 83605; 83690; 84484; 85025; 87040; 87086; 93005; 96361; 96374; 96375; 96376; 99285

== ENCOUNTER → 2018-07-26 | Outpatient (CLI) | payer MEDICARE ==
--- NOTE | 2018-07-26 13:56 | USB ---
Reason for exam: additional evaluation requested from abnormal screening. History: Patient is postmenopausal. Family history of premenopausal breast cancer in 2 maternal aunts and breast cancer in paternal grandmother. Benign stereotactic core biopsy of the left breast, September 27, 1999. Benign stereotactic core biopsy of the right breast, September 27, 1999. Core biopsy of the left breast. Core biopsy of the right breast. Excisional biopsy of the left breast. Took hormonal contraceptives for 10 years beginning at age 14. US Breast Limited RT Right limited breast ultrasound including focal area of concern, retroareolar and axilla demonstrates no cystic or solid lesion seen. These results were verbally communicated with the patient and result sheet given to the patient on 07/26/18. ASSESSMENT: Negative, BI-RAD 1 RECOMMENDATION: Routine screening mammogram of both breasts in 1 year.
--- NOTE | 2018-07-26 13:56 | MM ---
Reason for exam: clinical finding. Last mammogram was performed 1 year and 8 months ago. History: Patient is postmenopausal. Family history of premenopausal breast cancer in 2 maternal aunts and breast cancer in paternal grandmother. Benign stereotactic core biopsy of the left breast, September 27, 1999. Benign stereotactic core biopsy of the right breast, September 27, 1999. Core biopsy of the left breast. Core biopsy of the right breast. Excisional biopsy of the left breast. Took hormonal contraceptives for 10 years beginning at age 14. Physical Findings: Nurse did not find any significant physical abnormalities on exam. MG 3D Diag Mammo W/Cad KATE Bilateral CC and MLO view(s) were taken. Prior study comparison: November 17, 2016, bilateral MG 3d screening mammo w/cad. September 25, 2014, bilateral MG diagnostic mammo w CAD KATE. The breast tissue is heterogeneously dense. This may lower the sensitivity of mammography. Benign appearing bilateral calcifications. No suspicious abnormality. No significant new findings when compared with previous films. These results were verbally communicated with the patient and result sheet given to the patient on 07/26/18. ASSESSMENT: Incomplete: need additional imaging evaluation, BI-RAD 0 RECOMMENDATION: Ultrasound of the right breast. (palpable per patient)
== END | disposition home or self-care (01) ==
LOC: RADMAMWWP 13:00
PROVIDERS: ATTEND Family Medicine
DX: N63.10 Unspecified lump in the right breast, unspecified quadrant (principal); R92.8 Other abnormal and inconclusive findings on diagnostic imaging of breast
CPT/HCPCS: 77066; 76642; G0279; 77062

== ENCOUNTER → 2019-09-03 | Outpatient (CLI) | payer MEDICARE ==
--- NOTE | 2019-09-04 10:19 | MM ---
Reason for exam: screening (asymptomatic). Last mammogram was performed 1 year and 1 month ago. History: Patient is postmenopausal. Family history of premenopausal breast cancer in 2 maternal aunts and breast cancer in paternal grandmother. Benign stereotactic core biopsy of the left breast, September 27, 1999. Benign stereotactic core biopsy of the right breast, September 27, 1999. Core biopsy of the left breast. Core biopsy of the right breast. Excisional biopsy of the left breast. Took hormonal contraceptives for 10 years beginning at age 14. Physical Findings: A clinical breast exam by your physician is recommended on an annual basis and results should be correlated with mammographic findings. MG 3D Screening Mammo W/Cad Bilateral CC and MLO view(s) were taken. XCCL view(s) were taken of the left breast. Prior study comparison: July 26, 2018, bilateral MG 3d diag mammo w/cad KATE. November 17, 2016, bilateral MG 3d screening mammo w/cad. The breast tissue is heterogeneously dense. This may lower the sensitivity of mammography. There are benign appearing round calcifications bilaterally. Previous mammotome biopsy in the right and left breast. There is chronic nodularity in the right breast. There is no discrete abnormality. ASSESSMENT: Benign, BI-RAD 2 RECOMMENDATION: Routine screening mammogram of both breasts in 1 year.
== END | disposition home or self-care (01) ==
LOC: RADMAMWWP 09:41
PROVIDERS: ATTEND Family Medicine
DX: Z12.31 Encounter for screening mammogram for malignant neoplasm of breast (principal)
CPT/HCPCS: 77063; 77067

== ENCOUNTER → 2020-09-14 | Outpatient (CLI) | payer MEDICARE ==
--- NOTE | 2020-09-16 09:03 | MM ---
Reason for exam: screening (asymptomatic). Last mammogram was performed 1 year ago. History: Patient is postmenopausal. Family history of premenopausal breast cancer in 2 maternal aunts and breast cancer in paternal grandmother. Benign stereotactic core biopsy of the left breast, September 27, 1999. Benign stereotactic core biopsy of the right breast, September 27, 1999. Core biopsy of the left breast. Core biopsy of the right breast. Excisional biopsy of the left breast. Took hormonal contraceptives for 10 years beginning at age 14. Physical Findings: A clinical breast exam by your physician is recommended on an annual basis and results should be correlated with mammographic findings. MG 3D Screening Mammo W/Cad Bilateral CC and MLO view(s) were taken. Prior study comparison: September 03, 2019, bilateral MG 3d screening mammo w/cad. July 26, 2018, bilateral MG 3d diag mammo w/cad KATE. The breast tissue is heterogeneously dense. This may lower the sensitivity of mammography. Finding: There are typically benign vascular calcifications in both breasts. Previous mammotome biopsy in the left breast. No significant changes in finding since September 03, 2019 and July 26, 2018. ASSESSMENT: Benign, BI-RAD 2 RECOMMENDATION: Routine screening mammogram of both breasts in 1 year.
== END | disposition home or self-care (01) ==
LOC: RADMAMWWP 11:01
PROVIDERS: ATTEND Family Medicine
DX: Z12.31 Encounter for screening mammogram for malignant neoplasm of breast (principal); Z78.0 Asymptomatic menopausal state; Z80.3 Family history of malignant neoplasm of breast
CPT/HCPCS: 77063; 77067

== ENCOUNTER 2020-09-15 09:35 | Day surgery (SDC) | payer MEDICARE ==
[2020-09-13 16:16] VITALS: BMI 29.9
[2020-09-15 10:00] VITALS: RESP 16; TEMP 97.4
[2020-09-15] MEDS ORDERED: LACTATED RINGERS 1,000 ML IV ONE (10:08)
[2020-09-15] MEDS ORDERED: LIDOCAINE 1% (10MG/ML) FOR IV START INTRADERMA ONE (10:09)
[2020-09-15] MEDS ORDERED: PROPOFOL 10 MG/ML 20 ML VIAL IV ONE (10:23)
--- NOTE | 2020-09-15 10:36 | P.PCN ---
Date of Procedure: 09/15/20 Procedure(s) Performed: BRIEF HISTORY: Patient is a 65-year-old, pleasant, white female scheduled for an upper endoscopy as a part of evaluation of long-standing history of GERD and intermittent dysphagia to solids. PROCEDURE PERFORMED: Esophagogastroduodenoscopy biopsy and balloon dilation . PREOPERATIVE DIAGNOSIS: GERD/intermittent dysphagia to solids. IV sedation per anesthesia. PROCEDURE: After informed consent was obtained, the patient was brought into the endoscopy unit. IV sedation was administered by Anesthesia under continuous monitoring. Initially the Olympus GIF-140 video endoscope was inserted into the mouth. Esophagus intubated without any difficulty. It was gradually advanced into the stomach and duodenum and carefully examined. The bulb and the second part of the duodenum appeared normal. The scope at this time was withdrawn to the stomach, adequately insufflated with air, and upon careful examination, mucosa of the antrum Diffuse gastritis and biopsies were done from this area. The , body, cardia and the fundus appeared normal. The scope was then withdrawn into the esophagus.there was a small to moderate size hiatal hernia noted. The GE junction was located at 37 cm from the incisors.was a widely patent distal esophageal Schatzki's ring that was dilated using 18-20 mm TTS balloon in a sequential fashion for 60 seconds. There a few erosions noted at the GE junction consistent with LA grade B reflux esophagitis. The rest of the esophagus appeared normal. The patient tolerated the procedure well. IMPRESSION: 1. Distal esophageal Schatzki's ring status post balloon dilation with 18-20 mm balloon as described above. 2.. Small hiatal hernia 3. LA grade B reflux esophagitis 4. Mild diffuse antral gastritis RECOMMENDATIONS: The findings of this examination were discussed with the patient as well as a family. She was advised to follow with the biopsy results. She'll be started on omeprazole 20 mg daily and follow antireflux measures. She'll be seen back in office in 2 weeks.
[2020-09-15 10:45] VITALS: BP 106/70; PULSE 59
== END 2020-09-15 11:25 | disposition home or self-care (01) ==
LOC: ORWHC2ENDO 09:35
PROVIDERS: ATTEND Internal Medicine Gastroenterology
DX: K29.50 Unspecified chronic gastritis without bleeding (principal); K21.00 Gastro-esophageal reflux disease with esophagitis, without bleeding; K44.9 Diaphragmatic hernia without obstruction or gangrene; K22.2 Esophageal obstruction; I10 Essential (primary) hypertension; G47.33 Obstructive sleep apnea (adult) (pediatric); Z87.442 Personal history of urinary calculi; Z79.899 Other long term (current) drug therapy; Z88.5 Allergy status to narcotic agent; Z88.4 Allergy status to anesthetic agent
CPT/HCPCS: 88305; 43239; 43249; J2704; C1726

== ENCOUNTER → 2021-02-15 | Outpatient (CLI) | payer MEDICARE | END | disposition home or self-care (01) | LOC: LABWHC1 14:02 | PROVIDERS: ATTEND Family Medicine | DX: U07.1 COVID-19 (principal) | CPT/HCPCS: 36415; 86769 ==

== ENCOUNTER → 2022-01-02 | Outpatient (CLI) | payer MEDICARE ==
--- NOTE | 2022-01-03 09:16 | MM ---
Reason for Exam: Screening (asymptomatic). Last mammogram was performed 1 year(s) and 3 month(s) ago. Patient History: Menarche at age 10. First Full-Term at age 17. Left ovary removed at age 49. Right ovary removed at age 49. Hysterectomy at age 49. Postmenopausal. Hormonal Contraceptives for 10 years from age 14 until age 24. Core Biopsy on the Right side. Core Biopsy on the Left side. Excisional Biopsy on the Left side. 09/27/1999, Benign Stereotactic Core Biopsy on the left side. 09/27/1999, Benign Stereotactic Core Biopsy on the right side. Paternal grandmother had breast cancer, age 55. Paternal aunt had breast cancer. Paternal aunt had breast cancer. Risk Values: Cata 5 year model risk: 1.8%. NCI Lifetime model risk: 6.0%. Prior Study Comparison: 07/26/2018 Bilateral Diagnostic Mammogram, [facility]. 09/03/2019 Bilateral Screening Mammogram, [facility]. 09/14/2020 Bilateral Screening Mammogram, [facility]. Tissue Density: The breast tissue is heterogeneously dense. This may lower the sensitivity of mammography. Findings: Analyzed By CAD. There is no suspicious group of microcalcifications or new suspicious mass in either breast. Overall Assessment: Benign, BI-RAD 2 Management: Screening Mammogram of both breasts in 1 year. A clinical breast exam by your physician is recommended on an annual basis and results should be correlated with mammographic findings. Electronically signed and approved by: Felipe Fierro M.D. Radiologis
== END | disposition home or self-care (01) ==
LOC: RADMAMWWP 08:22
PROVIDERS: ATTEND Family Medicine
DX: Z12.31 Encounter for screening mammogram for malignant neoplasm of breast (principal); Z78.0 Asymptomatic menopausal state; Z80.3 Family history of malignant neoplasm of breast
CPT/HCPCS: 77063; 77067

== ENCOUNTER → 2022-08-18 | Outpatient (CLI) | payer MEDICARE ==
--- NOTE | 2022-08-18 15:30 | CT ---
EXAMINATION TYPE: CT abdomen wo/w con CT DLP: 967 mGycm, Automated exposure control for dose reduction was used. DATE OF EXAM: 08/18/2022 3:11 PM COMPARISON: CT abdomen pelvis 06/19/2018, renal ultrasound 06/20/2018. CLINICAL INDICATION:Female, 67 years old with history of K57.92 diverticulitis; diverticulitis TECHNIQUE: Standard CT of the abdomen before and after the uneventful administration of 80 mL of Is ovue 300 intravenously. Coronal and sagittal reformats were performed. FINDINGS: LOWER CHEST: Unremarkable ABDOMEN LIVER: Unremarkable GALLBLADDER AND BILE DUCTS: The gallbladder is surgically absent. No biliary ductal dilatation. PANCREAS: Unremarkable. SPLEEN: Unremarkable. ADRENAL GLANDS: Unremarkable. KIDNEYS AND URETERS: No evidence of renal calculus. The kidneys enhance symmetrically without suspici ous focal lesion. Bilateral extrarenal pelvises. Mild right hydronephrosis. STOMACH AND BOWEL: Small hiatal hernia, duodenum is unremarkable. No evidence of bowel obstruction. F ew scattered diverticula involving the visualized portion of the descending colon. The remaining desc ending colon sigmoid colon and rectum are not included on this abdominal examination. The visualized portion of the appendix is unremarkable. PERITONEUM: No evidence of pneumoperitoneum or free fluid. VASCULATURE: Minimal atherosclerotic calcifications are present throughout the abdominal aorta and it s branches. No evidence of aortic aneurysm. MUSCULOSKELETAL: No acute osseous abnormalities. Grade 1 anterolisthesis of L3 on L4 and L5 on S1. Mi ld retrolisthesis of L4-L5. No pars defects. Mild degenerative disc disease of the lower lumbar spine . LYMPH NODES: No gross evidence for lymphadenopathy. SOFT TISSUE/ABDOMINAL WALL: Small fat filled umbilical hernia. IMPRESSION: 1. Mild right hydronephrosis without visualized obstructing calculus. 2. Few scattered colonic diverticula within the visualized portion of the colon without evidence for acute diverticulitis. The remaining distal aspect of the descending colon and sigmoid colon/rectum ar e not included on this only CT abdomen examination.
== END | disposition home or self-care (01) ==
LOC: RADCTMAIN 13:01
PROVIDERS: ATTEND Family Medicine
DX: K57.92 Diverticulitis of intestine, part unspecified, without perforation or abscess without bleeding (principal); N13.30 Unspecified hydronephrosis; K57.30 Diverticulosis of large intestine without perforation or abscess without bleeding; R63.0 Anorexia; E86.0 Dehydration
CPT/HCPCS: 82565; 84520; 74170; 36415; Q9967

== ENCOUNTER → 2022-10-12 | Outpatient (CLI) | payer MEDICARE ==
--- NOTE | 2022-10-12 11:37 | CTL ---
EXAMINATION TYPE: CT Low Dose Lung DATE OF EXAM: 10/12/2022 10:58 AM CLINICAL INDICATION:Female, 67 years old with history of R05.9,Z87.891; Personal history of tobacco u se , history of tobacco use. COMPARISON: None. TECHNIQUE: Multiple axial non-contrast scans were obtained from approximately the lung apices through the upper abdomen. Coronal and sagittal reformatted images were obtained. Low dose technique was uti lized. CT DLP: 74.7 mGycm, Automated exposure control for dose reduction was used. CT Contrast: Contrast used: None Oral contrast used: None FINDINGS: ======== Lack of intravenous contrast and low dose technique limits the evaluation of the vascular and soft ti ssue structures. LUNGS: No evidence of pulmonary fibrosis. No evidence of focal consolidation, pneumothorax or pleural effusion. Nodules: RUL: None. RML: None. RLL: None. ASTON: None. LLL: None. AIRWAY: Patent and unremarkable. HEART: Size within normal limits. MEDIASTINUM: No gross evidence of adenopathy. Small hiatal hernia is present. VASCULATURE: No aortic aneurysm. MUSCULOSKELETAL: Mild disc degeneration changes are present throughout the thoracolumbar spine. SOFT TISSUES/LYMPH NODES: Unremarkable. LOWER NECK: No significant findings. UPPER ABDOMEN: No significant findings. IMPRESSION: No clinically significant pulmonary nodules. CT LUNG RAD AND CT CHEST RECOMMENDATION: Lung-Rad 1 Negative: Continue annual screening with LDCT in 12 months. S Modifier (other clinically significant findings): None Recommend smoking cessation (if current smoker), or continuation of smoking cessation (if prior smoke r). Annual screening for lung cancer with low-dose computed tomography is recommended in adults ages 55 to 77 years who have a 30 pack-year smoking history and currently smoke or have quit within the pa st 15 years. Screening should be discontinued once a person has not smoked for 15 years or develops a health problem that substantially limits life expectancy or the ability or willingness to have curat armando lung surgery. Lung rads 2021 [email or web address]
== END | disposition home or self-care (01) ==
LOC: RADCTMAIN 10:38
PROVIDERS: ATTEND Family Medicine
DX: Z12.2 Encounter for screening for malignant neoplasm of respiratory organs (principal); M51.35 Other intervertebral disc degeneration, thoracolumbar region; R05.9 Cough, unspecified; Z87.891 Personal history of nicotine dependence
CPT/HCPCS: 71271

== ENCOUNTER → 2023-02-12 | Outpatient (CLI) | payer MEDICARE ==
--- NOTE | 2023-02-12 11:48 | MM ---
Reason for Exam: Screening (asymptomatic). Last mammogram was performed 1 year(s) and 2 month(s) ago. Patient History: Menarche at age 10. First Full-Term at age 17. Left ovary removed at age 49. Right ovary removed at age 49. Hysterectomy at age 49. Postmenopausal. Hormonal Contraceptives for 10 years from age 14 until age 24. Core Biopsy on the Right side. Core Biopsy on the Left side. Excisional Biopsy on the Left side. 09/27/1999, Benign Stereotactic Core Biopsy on the left side. 09/27/1999, Benign Stereotactic Core Biopsy on the right side. Paternal grandmother had breast cancer, age 55. Paternal aunt had breast cancer, age 45. Paternal aunt had breast cancer, age 50. Paternal aunt had breast cancer, age 55. Maternal aunt had breast cancer, age 45. Risk Values: Cata 5 year model risk: 1.9%. NCI Lifetime model risk: 5.7%. Prior Study Comparison: 09/03/2019 Bilateral Screening Mammogram, [facility]. 09/14/2020 Bilateral Screening Mammogram, [facility]. 01/02/2022 Bilateral MG 3D screening mammo w/cad, [facility]. Tissue Density: The breast tissue is heterogeneously dense. This may lower the sensitivity of mammography. Findings: Analyzed By CAD. Bilateral breast biopsy clips. There is no suspicious group of microcalcifications or new suspicious mass. Overall Assessment: Benign, BI-RAD 2 Management: Screening Mammogram of both breasts in [address] [facility] will attempt to contact patient to return for supplemental views and ultrasound if indicated. Patient should continue monthly self-breast exams. A clinical breast exam by your physician is recommended on an annual basis. This exam should not preclude additional follow-up of suspicious palpable abnormalities. Note on Cata scores and lifetime risk: 1. A Cata score greater than 3% is considered moderate risk. If this is the case, consider specialist referral to assess eligibility for a risk reducing agent. 2. If overall lifetime risk for the development of breast cancer is 20% or higher, the patient may qualify for future screening with alternating mammogram and breast MRI. Electronically signed and approved by: Elder Alves DO
== END | disposition home or self-care (01) ==
LOC: RADMAMWWP 10:15
PROVIDERS: ATTEND Family Medicine
DX: Z12.31 Encounter for screening mammogram for malignant neoplasm of breast (principal); Z80.3 Family history of malignant neoplasm of breast; Z78.0 Asymptomatic menopausal state
CPT/HCPCS: 77063; 77067

== ENCOUNTER → 2023-02-26 | Outpatient (CLI) | payer MEDICARE ==
--- NOTE | 2023-02-26 12:14 | BD ---
EXAMINATION TYPE: Axial Bone Density DATE OF EXAM: 02/26/2023 CLINICAL HISTORY: 67 years old Female. ICD-10 CODE: Z13.820 SCREEN FOR OSTEOPOROSIS Height: 62.8 Weight: 169 FRAX RISK QUESTIONS: Family History (Parent hip fracture): yes Glucocorticoids (More than 3mos): yes (Ex: prednisone, prednisolone, methylprednisolone, dexamethasone, and hydrocortisone). Rheumatoid Arthritis: yes Current Tobacco Use: quit a while back RISK FACTORS HISTORY OF: Family History of Osteoporosis: yes, mother with hip fx Diet low in dairy products/other sources of calcium: yes Postmenopausal woman: yes, at 48 with complete hyst Poor Health: severe Lyme disease with joint degeneration; RA Hyperparathyroidism: no Adrenal Insufficiency: no MEDICATIONS: Prednisone or other steroids: yes, for lymes disease, and viris currently, Additional Medications: calcium and vit d, dexacycline for the Lyme disease, bp meds, seraquil, diure tic, reflux meds, pain meds, anti inflammatories, Additional History: hx of angie knee replacements, Lyme disease, hypertension, reflux, RA, renal maurice rns, EXAM MEASUREMENTS: Bone mineral densitometry was performed using the [employer] System. Bone mineral density as measured about the Lumbar spine is: ----- L1-L4(G/cm2): 1.279 T Score Values are as follows: ----- L1: -0.5 ----- L2: -0.5 ----- L3: 1.2 ----- L4: 3.0 ----- L1-L4: 0.8 Z Score Values are as follows: ----- L1: 0.8 ----- L2: 0.8 ----- L3: 2.5 ----- L4: 4.2 ----- L1-L4: 2.1 Bone mineral density is a baseline study. Bone mineral density about the R hip (g/cm2): 1.002 Bone mineral density about the L hip (g/cm2): 1.071 T Score values are as follows: -----R Neck: 0.0 -----L Neck: 0.9 -----R Total: 0.0 -----L Total: 0.5 Z Score values are as follows: -----R Neck: 1.4 -----L Neck: 2.4 -----R Total: 1.1 -----L Total: 1.7 Bone mineral density is a baseline study. FRAX%s: The graph provided illustrates a 21.1% chance for a major osteoporotic fx and a 1.8% chance f or the hips probability for fx in 10 years time. IMPRESSION: Normal (Values between +1 and -1 indicate normal bone mass). Consider repeating this study in 5 year s or sooner if there is some new clinical indication. NOTE: T-SCORE=SD OF THE YOUNG ADULT MEAN.
== END | disposition home or self-care (01) ==
LOC: RADBDWWP 07:14
PROVIDERS: ATTEND Family Medicine
DX: Z00.00 Encounter for general adult medical examination without abnormal findings (principal); Z13.820 Encounter for screening for osteoporosis; Z78.0 Asymptomatic menopausal state
CPT/HCPCS: 77080

== ENCOUNTER 2023-09-17 11:15 | Day surgery (SDC) | payer MEDICARE ==
[2023-09-17] MEDS: IV FLUID CONTINUATION 1,000 ML IV ONE (11:53)
[2023-09-17 12:05] VITALS: TEMP 97
[2023-09-17] MEDS: LACTATED RINGERS 1,000 ML IV SCH (12:25)
[2023-09-17] MEDS ORDERED: PROPOFOL 10 MG/ML 20 ML VIAL IV ONE (12:45)
--- NOTE | 2023-09-17 12:49 | P.GSHP ---
History of Present Illness H&P Date: 09/17/23 Chief Complaint: history of diverticulitis, diarrhea this a 68-year-old female. History of diverticulitis. Patient's had complaints of diarrhea. She presents today for colonoscopy Past Medical History Past Medical History: Fibromyalgia, GERD/Reflux, Hypertension, Osteoarthritis (OA), Sleep Apnea/CPAP/BIPAP Additional Past Medical History / Comment(s): lyme disease, kidney stones, neuropathy in feet, NO CPAP, hx. diverticulosis and colon polyps History of Any Multi-Drug Resistant Organisms: None Reported Past Surgical History: Cholecystectomy, Hysterectomy, Orthopedic Surgery, Tonsillectomy Additional Past Surgical History / Comment(s): right foot surgery 2011, bilateral partial knee, rt rotator cuff repair, nose surgery, colonoscopy Past Anesthesia/Blood Transfusion Reactions: Previous Problems w/ Anesthesia, Postoperative Nausea & Vomiting (PONV) Additional Past Anesthesia/Blood Transfusion Reaction / Comment(s): elevated BP w/anesthesia in the past per pt; two sisters hx. elevated BP w/ anesthesia; one sister with PONV; mother had a hard time coming out of anesthesia. Smoking Status: Former smoker - Past Family History Mother Family Medical History: Hypertension, Thyroid Disorder Sister(s) Family Medical History: Hypertension, Thyroid Disorder Additional Family Medical History / Comment(s): Crohns. Father Family Medical History: Cancer Medications and Allergies Home Medications Medication Instructions Recorded Confirmed Type QUEtiapine [SEROquel] 50 mg PO HS 01/09/15 09/17/23 History Multivitamins, Thera [Multivitamin 1 tab PO DAILY 09/13/20 09/17/23 History (formulary)] Albuterol Inhaler [Ventolin Hfa 1 - 2 puff INHALATION Q6H PRN 09/14/23 09/17/23 History Inhaler] Losartan [Cozaar] 25 mg PO HS 09/14/23 09/17/23 History amLODIPine [Norvasc] 5 mg PO DAILY 09/14/23 09/17/23 History hydroCHLOROthiazide 12.5 mg PO DAILY 09/14/23 09/17/23 History Allergies Allergy/AdvReac Type Severity Reaction Status Date / Time Anesthetics - Amide Type - Allergy Nausea Verified 09/17/23 12:07 Select A [Anesthetics - Amide Type] meperidine HCl [From Demerol] AdvReac Nausea & Verified 09/17/23 12:07 Vomiting morphine AdvReac Nausea & Verified 09/17/23 12:07 Vomiting Surgical - Exam Vital Signs Temp Pulse Resp BP Pulse Ox 97 F L 77 18 163/83 98 09/17/23 12:04 09/17/23 12:04 09/17/23 12:04 09/17/23 12:04 09/17/23 12:04 - General well developed, well nourished, no distress - Eyes PERRL - ENT normal pinna - Neck no masses - Respiratory normal expansion - Cardiovascular Rhythm: regular - Abdomen Abdomen: soft, non tender Assessment and Plan Assessment: history of diarrhea diverticula is. We'll perform colonoscopy.
--- NOTE | 2023-09-17 13:01 | P.OP ---
Date of Procedure: 09/17/23 Preoperative Diagnosis: diarrhea History of diverticulitis Postoperative Diagnosis: diverticulosis Rectal biopsy pathology pending Procedure(s) Performed: colonoscopy Anesthesia: MAC Surgeon: Torin Atkinson Pathology: other (rectum) Condition: stable Disposition: PACU Description of Procedure: the patient's placed on the operating room table in the lateral position. she received IV sedation. Digital rectal exam was performed. This revealed no ebonized. Flexible colonoscope was then placed patient anus passed throughout the colon. The scope couldn't be passed beyond the transverse colon significant tortuosity valve. At this point scope withdrawn. In the descending and sigmoid colon there is moderate diverticular changes. Scope was brought back the rectum and there was some possible mild inflammatory changes. This was biopsied with the cold forcep. The scope was then withdrawn for patient. Patient was scheduled for a barium enema.
[2023-09-17 13:19] VITALS: BP 130/84; PULSE 86; RESP 18
== END 2023-09-17 14:38 | disposition home or self-care (01) ==
LOC: ORWHC2ENDO 11:15
PROVIDERS: ATTEND Surgery
DX: K57.30 Diverticulosis of large intestine without perforation or abscess without bleeding (principal); Z87.19 Personal history of other diseases of the digestive system; Z83.79 Family history of other diseases of the digestive system; I10 Essential (primary) hypertension; G47.33 Obstructive sleep apnea (adult) (pediatric); K21.9 Gastro-esophageal reflux disease without esophagitis; M79.7 Fibromyalgia; Z87.891 Personal history of nicotine dependence; F31.9 Bipolar disorder, unspecified; G62.9 Polyneuropathy, unspecified; A69.20 Lyme disease, unspecified; Z88.4 Allergy status to anesthetic agent; Z88.5 Allergy status to narcotic agent; Z88.8 Allergy status to other drugs, medicaments and biological substances; Z79.899 Other long term (current) drug therapy
CPT/HCPCS: 88305; 45380; J2704

== ENCOUNTER → 2023-09-27 | Outpatient (CLI) | payer MEDICARE ==
--- NOTE | 2023-09-27 11:10 | FL ---
EXAMINATION TYPE: FL barium enema DATE OF EXAM: 09/27/2023 9:58 AM CLINICAL INDICATION:Female, 68 years old with history of K57.30 Diverticulosis; COMPARISON: 08/18/2022 TECHNIQUE: The procedure was explained and patient history elicited. All patient questions were answ ered prior to beginning. Multiple spot fluoroscopic images of the colon were obtained after the recta l administration of liquid barium as the contrast agent. Multiple postprocedural overhead images, w ere obtained and reviewed. Fluoroscopic time: 1 minute 55 seconds Fluoroscopic images: 0 Radiographs taken: 30 DAP: Not reported [id number] FINDINGS: The mortuary beautician abdominal radiograph demonstrates a normal bowel gas pattern without dilated loo ps of small or large bowel. There is no evidence for organomegaly or pneumoperitoneum. No abnormal calcifications. The visualized osseous structures are intact. Right upper quadrant cholecystectomy c lips. Multilevel degeneration changes spine. The colon demonstrates normal course and contour without evidence of focal stricture, or internal arsh ling defects. There are few scattered colonic diverticula. Views of the cecum with manual compressio n are unremarkable. Postevacuation images are unremarkable. IMPRESSION: 1. No evidence for abnormal stricture or mass lesion within the sigmoid colon. 2. Scattered colonic diverticula
== END | disposition home or self-care (01) ==
LOC: RADFLMAIN 07:31
PROVIDERS: ATTEND Surgery
DX: K57.30 Diverticulosis of large intestine without perforation or abscess without bleeding (principal)
CPT/HCPCS: 74270

== ENCOUNTER → 2023-10-15 | Outpatient (CLI) | payer MEDICARE ==
[2023-10-15 20:55] LABS: Anion Gap 12.9 mmol/L (4.00-12.00); Carbon Dioxide 25.1 mmol/L (21.6-31.8); Potassium 3.8 mmol/L (3.5-5.5)
[2023-10-15 21:05] LABS: Basophils # (A) 0.05 X 10*3/uL (0.00-0.10); Basophils % (A) 0.9 %; Eosinophils % (A) 1.8 %; HCT 37.5 % (37.2-46.3); HGB 12.6 g/dL (12.0-15.0); Immature Grans, Automated 0 %; Lymphocytes % (A) 28.6 %; MCH 32.7 pg (27.0-32.0); MCHC 33.6 g/dL (32.0-37.0); MCV 97.4 FL (80.0-97.0); Mean Platelet Volume 9.6 FL (9.5-12.2); Monocytes # (A) 0.48 X 10*3/uL (0.20-1.00); Monocytes % (A) 8.6 %; NRBC Per 100 WBC 0 X 10*3/uL (0.00-0.01); Neutrophils # (A) 3.37 X 10*3/uL (1.80-7.70); Neutrophils % (A) 60.1 %; Platelet Count 273 X 10*3/uL (140-440); RBC 3.85 X 10*6/uL (4.10-5.20); RDW 12.1 % (11.5-14.5)
== END | disposition home or self-care (01) ==
LOC: LABPAT 16:10
PROVIDERS: ATTEND Surgery
DX: Z01.812 Encounter for preprocedural laboratory examination (principal); K57.32 Diverticulitis of large intestine without perforation or abscess without bleeding
CPT/HCPCS: 80051; 85025; 86850; 86900; 86901

== ENCOUNTER 2023-10-22 05:34 | Inpatient (IN) | payer MEDICARE ==
[2023-10-15 15:35] VITALS: BMI 27.9
[~2023-10-22 05:34] MED LIST: HEPARIN SODIUM,PORCINE 5,000 UNIT/ML 1 ML VIAL SQ PRN
[2023-10-22] MEDS: ACETAMINOPHEN TAB 500 MG TAB PO PRN (06:52)
[2023-10-22] MEDS: SCOPOLAMINE 1 MG/72 HR PATCH TRANSDERM STA (06:53)
[2023-10-22] MEDS: DEXAMETHASONE SOD PHOSPHATE 4 MG/ML 1 ML VIAL IV ONE (06:55)
[2023-10-22] MEDS: ONDANSETRON 4 MG/2 ML VIAL IVP ONE (06:55)
[2023-10-22] MEDS: FAMOTIDINE 20 MG/2 ML VIAL IV STA (06:55)
[2023-10-22] MEDS: LACTATED RINGERS 1,000 ML IV SCH (06:56)
[2023-10-22] MEDS ORDERED: fentaNYL (PF) 50 MCG/ML 2 ML AMP IV PRN (07:00)
[2023-10-22] MEDS: MIDAZOLAM 2 MG/2 ML VIAL IVP ONE (07:03)
[2023-10-22] MEDS: fentaNYL (PF) 50 MCG/ML 2 ML AMP IVP ONE ×2 (07:08)
[2023-10-22] MEDS: IV FLUID CONTINUATION 1,000 ML IV ONE (07:24)
[2023-10-22] MEDS ORDERED: NALOXONE 0.4 MG/ML 1 ML VIAL IV PRN (07:30)
--- NOTE | 2023-10-22 07:30 | P.ANPRN ---
Procedure Note - Anesthesia - Epidural/Spinal Epidural Time Out Performed: Yes Date of Procedure: 10/22/23 Procedure Start Time: 07:03 Procedure Stop Time: 07:08 Location of Patient: PreOp Indication: Acute Post-Operative Pain, Analgesia, Requested by Surgeon Sedation Type: Sedate with meaningful contact maintained Preparation: Sterile Dressing Position: Sitting Catheter: Indwelling Needle Guage: 18 Narrative: Test dose 1.5% lodocaine with epi. Negative S/S. Negative csf,blood, paresthesia. Blood Aspirated: No Pain Paresthesia on Injection Noted: No Events: Uneventful and Well Tolerated
[2023-10-22] MEDS ORDERED: PROPOFOL 10 MG/ML 20 ML VIAL IV ONE (07:44)
[2023-10-22] MEDS ORDERED: ROCURONIUM 10 MG/ML (5 ML VIAL) IV ONE (07:44)
[2023-10-22] MEDS ORDERED: fentaNYL (PF) 50 MCG/ML 2 ML AMP ONE (07:44)
[2023-10-22] MEDS ORDERED: NEOSTIGMINE 1 MG/ML 10 ML VIAL ONE (07:44)
[2023-10-22] MEDS ORDERED: PHENYLEPHRINE 10 MG/ML VIAL ONE (07:44)
[2023-10-22] MEDS ORDERED: SUCCINYLCHOLINE CHLORIDE 200 MG/10 ML VIAL IV ONE (07:44)
[2023-10-22] MEDS ORDERED: LIDOCAINE 1% INJ 10MG/ML (20 ML MDV) ONE (07:44)
[2023-10-22] MEDS ORDERED: MIDAZOLAM 2 MG/2 ML VIAL ONE (07:44)
[2023-10-22] MEDS ORDERED: GLYCOPYRROLATE 0.2 MG/ML 2 ML VIAL ONE (07:44)
[2023-10-22] MEDS: LACTATED RINGERS 1,000 ML IV ONE (08:28)
[2023-10-22] MEDS: metroNIDAZOLE-NS PMX 500 MG in SALINE 1 100ML.BAG IVPB PRN (09:44)
[2023-10-22] MEDS: ROPIVACAINE 250 MG, HYDROMORPHONE (PF) 5 MG in SODIUM CHLORIDE 0.9% 200 ML EPIDURAL PRN (09:51)
--- NOTE | 2023-10-22 10:00 | P.OP ---
Date of Procedure: 10/22/23 Preoperative Diagnosis: Diverticulitis Rectal prolapse Postoperative Diagnosis: Diverticulitis Rectal prolapse Procedure(s) Performed: Low anterior resection Anesthesia: HOLLEY Surgeon: Torin Atkinson Estimated Blood Loss (ml): 30 Pathology: other (Sigmoid colon) Condition: stable Disposition: PACU Description of Procedure: Patient was placed on the operative table in the supine position. She received general endotracheal tube anesthesia. Her abdomen was prepped and draped you sterile fashion after she was placed in dorsolithotomy position. A low midline skin incision made. Then using electrocautery the subcu tissue divided. The fascia was then divided in the midline. The Bookwalter tract placed the wound. The ab explored. There is evidence of diverticulitis of the sigmoid colon. At this point the lateral attachments of the sigmoid colon were dissected off the para cavity. And then the white line of Toldt was divided using the harmonic scissors to mobilize the left colon. An enterotomy was made in the proximal sigmoid colon. The anvil for the 29 mm EEA stapler was placed in the colon. And then the colon was transected and then the enterotomy was closed with 3-0 GI silk suture. The anvil was driven through the proximal staple line. The mesentery of the sigmoid colon was then divided using the Enseal device. The mesorectum was divided. And then the rectum was transected with the contour stapler. This point the first system placed the anal dilator and the patient anus. Then the EEA stapler is placed in the anus. The spike for the stapler was then driven through the staple line. The anvil was connected stapler. The stapler then closed and fired. The staple was withdrawn. 2 intact tissue donut rings were removed from the stapler. Next using a bowel clamp the bowel was occluded and then using a rigid sigmoidoscope the rectum was insufflated air. There is no evidence of extravasation. Enough air pressure was placed in the patient's rectum to fully inflate the rectum. This point the sigmoidoscope was withdrawn. The abdomen. There is no bleeding seen. The fascia is closed with looped #1 PDS suture. Skin was closed liseht. Patient tolerated procedure well. She was sent to recovery room in stable condition.
[2023-10-22] MEDS: HYDROmorphone 0.5 MG/0.5 ML SYRINGE IVP STA (10:24)
[2023-10-22] MEDS: diphenhydrAMINE 50 MG/ML 1 ML VIAL IVP STA (12:33)
[2023-10-22] MEDS: droPERidol 5 MG/2 ML VIAL IVP ONE (14:59)
[2023-10-22 15:15] LABS: Basophils % (A) 0 %; Eosinophils % (A) 0 %; HCT 37.2 % (34.0-46.0); HGB 12.3 gm/dL (11.4-16.0); Lymphocytes # (A) 0.3 k/uL (1.0-4.8); Lymphocytes % (A) 4 %; MCH 33.3 pg (25.0-35.0); MCV 100.8 fL (80.0-100.0); Mean Platelet Volume 7.2; Monocytes # (A) 0.4 k/uL (0-1.0); Monocytes % (A) 5 %; Neutrophils # (A) 7.6 k/uL (1.3-7.7); Neutrophils % (A) 91 %; Platelet Count 266 k/uL (150-450); RBC 3.69 m/uL (3.80-5.40); WBC 8.4 k/uL (3.8-10.6)
[2023-10-22 15:23] LABS: African American GFR (CKD) 89 (>60 ml/min/1.73 sqM); Anion Gap 10 mmol/L; Blood Urea Nitrogen 13 mg/dL (7-17); Calcium 8.8 mg/dL (8.4-10.2); Carbon Dioxide 24 mmol/L (22-30); Chloride 105 mmol/L (98-107); Glucose 126 mg/dL (74-99); Non-African American GFR(CKD) 77 (>60 ml/min/1.73 sqM); Potassium 3.3 mmol/L (3.5-5.1); Sodium 139 mmol/L (137-145)
[2023-10-22] MEDS ORDERED: Potassium Replacement Protocol 1 EACH MISC MISCELLANE PRN ×2 (17:06→21:45)
[2023-10-22] MEDS: POTASSIUM CHLORIDE ER 20 MEQ TAB.ER PO SCH (17:35)
[2023-10-22] MEDS: ALBUTEROL NEBULIZED 2.5 MG/3 ML INHALATION PRN (18:40)
[2023-10-22] MEDS: LOSARTAN 25 MG TAB PO SCH (21:56)
[2023-10-22] MEDS: QUEtiapine 50 MG TAB PO SCH (21:56)
[2023-10-22] MEDS: FAMOTIDINE 20 MG/2 ML VIAL IV SCH (21:57)
[2023-10-22] MEDS: POTASSIUM BICARBONATE/CIT AC 20 MEQ TABLET.EFF NG-TUBE SCH (21:58)
[2023-10-22] MEDS: diphenhydrAMINE 50 MG/ML 1 ML VIAL IVP PRN (22:07)
[2023-10-23] MEDS: ACETAMINOPHEN TAB 325 MG TAB PO PRN (04:02)
[2023-10-23] MEDS: BENZOCAINE/MENTHOL LOZENG 1 EACH LOZENGE MUCOUS MEM PRN (04:39)
[2023-10-23] MEDS: ALVIMOPAN 12 MG CAPSULE PO SCH (07:43)
[2023-10-23] MEDS: MULTIVITAMINS, THERA 1 EACH TAB PO SCH (07:43)
[2023-10-23] MEDS: hydroCHLOROthiazide 12.5 MG CAP PO SCH (07:43)
[2023-10-23] MEDS: amLODIPine 5 MG TAB PO SCH (07:43)
--- NOTE | 2023-10-23 08:35 | P.PN ---
Progress Note - Text Progress Note Date: 10/23/23 Postoperative day # 1 status post low anterior resection ,epidural catheter placed for postoperative analgesia, patient doing well epidural site okay, patient currently on combination of epidural infusion solution of Ropivacaine 0.0625% and Dilaudid 20 g per mL the infusion rate at 12 ml per hour , patient had no motor deficit epidural site okay , vital signs stable ,VAS 2 /10 , patient complaining of itching , and the itching not controlled with the Benadryl she is receiving 12.5 mg Benadryl every 6 hours as needed, and she continued to have severe itching, for this reason I will add nalbuphine 2.5 mg IV every 6 hours as needed Assessment and plan= post operative day #1 patient doing well ,pain well controlled , there is no anesthesia related complications, patient complaining of itching we will add nalpuphin , to her current medication
[2023-10-23] MEDS: NALBUPHINE 10 MG/ML (10 ML MDV) IV PRN (09:53)
[2023-10-23] MEDS: PANTOPRAZOLE 40 MG/10 ML VIAL IVP SCH (11:31)
[2023-10-23] MEDS: SODIUM CHLORIDE 0.9% 1,000 ML IV SCH (12:52)
--- NOTE | 2023-10-23 13:56 | P.PN ---
Subjective Progress Note Date: 10/23/23 CHIEF COMPLAINT: Diverticulitis and rectal prolapse HISTORY OF PRESENT ILLNESS: Patient postop day #1 status post lower anterior resection. She has epidural for pain control. Patient does report pain with movement and rates it about a 7 out of 10. When she is lying still pain is around 2-3. No bowel activity. She did have a low-grade temp of 100.7 last night. Apparently she went through the evening without IV fluids. This morning she had her dog in the room the dog did jump on the her belly and pulled out the IV per nursing staff. The dog is no longer in the room. And patient is receiving a midline. Mildly tachycardic heart rate 109. WBC 8.4 Hgb 12.3 potassium 4.0 Patient seen and examined with Dr. Atkinson PHYSICAL EXAM: VITAL SIGNS: Reviewed. GENERAL: Well-developed in no acute distress. ABDOMEN: Soft. Nondistended. Provide wound VAC intact. Small area of saturation noted on the dressing NEUROLOGIC: Alert and oriented. Cranial nerves II through XII grossly intact. ASSESSMENT: 1. Diverticulitis and rectal prolapse PLAN: -midline ordered for IV access -IV fluids normal saline at 125 ml/hr ordered -Continue clear liquid diet -Patient pulled out her epidural catheter. IV Dilaudid every 3 hours as needed for pain ordered -Abdominal binder ordered -Ice as needed ordered -Encourage patient to use incentive spirometer -Encourage patient to increase activity level -Subcu heparin for DVT prophylaxis Physician Technology Sales Consultant note has been reviewed by physician. Signing provider agrees with the documented findings, assessment, and plan of care. Objective - Vital Signs Vital signs: Vital Signs Temp 99.0 F 10/23/23 13:06 Pulse 109 H 10/23/23 13:06 Resp 24 10/23/23 13:06 BP 166/73 10/23/23 13:06 Pulse Ox 94 L 10/23/23 13:06 FiO2 Intake & Output 10/22/23 10/23/23 10/23/23 18:59 06:59 18:59 Intake Total 1762.7 2423.8 Output Total 200 350 800 Balance 1562.7 2073.8 -800 Intake: IV 1750 Intake, IV Titration 12.7 203.8 Amount Ropivacaine 250 mg 12.7 203.8 Hydromorphone (Pf) 5 mg In Sodium Chloride 0.9% 200 ml @ Per Protocol EPIDURAL .Q0M PRN Rx#: [id number] Oral 2220 Output: Urine 200 350 800 Other: Voiding Method Indwelling Catheter Indwelling Catheter - Labs CBC & Chem 7: 10/22/23 14:44 10/23/23 01:55 Labs: Abnormal Lab Results - Last 24 Hours (Table) 10/22/23 10/22/23 10/22/23 Range/Units 14:44 14:44 19:47 RBC 3.69 L (3.80-5.40) m/uL MCV 100.8 H (80.0-100.0) fL Lymphocytes # 0.3 L (1.0-4.8) k/uL Potassium 3.3 L 3.4 L (3.5-5.1) mmol/L Glucose 126 H (74-99) mg/dL
[2023-10-23] MEDS: hydrOXYzine HCL 25 MG TAB PO PRN (14:06)
[2023-10-23] MEDS ORDERED: LORazepam 2 MG/ML INJ IV PRN ×4 (14:06→14:54)
[2023-10-23] MEDS: HYDROmorphone 1 MG/ML 1 ML SYRINGE IVP PRN (14:07)
--- NOTE | 2023-10-23 15:07 | XR ---
EXAMINATION TYPE: XR chest 2V DATE OF EXAM: 10/23/2023 COMPARISON: None INDICATION: Fevers TECHNIQUE: Frontal and lateral views of the chest are obtained. FINDINGS: The heart size is normal. The pulmonary vasculature is normal. There may be some mild infiltrate within the posterior lung base on the lateral projection. Correlate for atelectasis. Follow-up can be performed.. Stomach is distended with air IMPRESSION: 1. There may be a posterior infiltrate. Correlate for atelectasis
--- NOTE | 2023-10-23 15:08 | P.CONS ---
History of Present Illness - Reason for Consult Consult date: 10/23/23 Medical management hypertension Requesting physician: Torin Atkinson - Chief Complaint Lower anterior resection, postop day 1 - History of Present Illness This is a 68-year-old female with past medical history significant for PONV, gastroesophageal reflux disease, fibromyalgia, hypertension, osteoarthritis, sleep apnea, does not wear CPAP, Lyme disease neuropathy in bilateral lower extremities, bipolar, former nicotine dependence, daily wine consumption of 1- 1/2 bottles, marijuana Gummies and multiple other medical issues, status post lower anterior resection, postop day #1. Nursing staff reports patient had her dog in the room this morning, jumping on her and pulled out IV. Patient has lost 3 IV sites, initially refusing for new IV access and midline catheter has been ordered per general surgery. Staff reporting patient was pulling at prevana wound VAC. Tmax 100.7, raspy throat. Upon returning back from chest x-ray, staff reports patient moving her arms all over,epidural pulled out. Pain management with Dilaudid IV push as per general surgery. Pain currently controlled. Mild tachycardia, IV fluids initiated. WBC 8.4, hemoglobin 12.3, platelets 266. Potassium 4. Denies chest pain, palpitations or shortness of breath. Maintaining O2 sats in the high 90s on room air. Review of Systems ROS Statement: Those systems with pertinent positive or pertinent negative responses have been documented in the HPI. ROS Other: All systems not noted in ROS Statement are negative. Past Medical History Past Medical History: Fibromyalgia, GERD/Reflux, Hypertension, Osteoarthritis (OA), Sleep Apnea/CPAP/BIPAP Additional Past Medical History / Comment(s): Lyme Disease, kidney stones, neuropathy in feet, NO CPAP, hx diverticulosis and colon polyps. History of Any Multi-Drug Resistant Organisms: None Reported Past Surgical History: Cholecystectomy, Hysterectomy, Orthopedic Surgery, Tonsillectomy Additional Past Surgical History / Comment(s): Right foot surgery, bilateral partial knee, right rotator cuff repair, nose surgery, colonoscopy. Past Anesthesia/Blood Transfusion Reactions: Previous Problems w/ Anesthesia, Postoperative Nausea & Vomiting (PONV) Additional Past Anesthesia/Blood Transfusion Reaction / Comm: Elevated BP w /anesthesia in the past per pt; two sisters hx. elevated BP w/ anesthesia; one sister with PONV; mother had a hard time coming out of anesthesia. Smoking Status: Former smoker - Past Family History Mother Family Medical History: Hypertension, Thyroid Disorder Sister(s) Family Medical History: Hypertension, Thyroid Disorder Additional Family Medical History / Comment(s): Crohns. Father Family Medical History: Cancer Medications and Allergies Home Medications Medication Instructions Recorded Confirmed Type QUEtiapine [SEROquel] 50 mg PO HS 01/09/15 10/15/23 History Multivitamins, Thera [Multivitamin 1 tab PO DAILY 09/13/20 10/15/23 History (formulary)] Albuterol Inhaler [Ventolin Hfa 1 - 2 puff INHALATION Q6H PRN 09/14/23 10/15/23 History Inhaler] Losartan [Cozaar] 25 mg PO HS 09/14/23 10/15/23 History amLODIPine [Norvasc] 5 mg PO DAILY 09/14/23 10/15/23 History hydroCHLOROthiazide 12.5 mg PO DAILY 09/14/23 10/15/23 History Fish Oil (Unknown Dose) 1 tab PO DAILY 10/15/23 10/15/23 History L.acidoph,Paracasei, B.lactis 1 tab PO DAILY 10/15/23 10/15/23 History [Probiotic] Vitamin D3 (Unknown Dose) 1 tab PO DAILY 10/15/23 10/15/23 History Allergies Allergy/AdvReac Type Severity Reaction Status Date / Time Anesthetics - Amide Type - Allergy Nausea Verified 10/22/23 06:23 Select A [Anesthetics - Amide Type] meperidine HCl [From Demerol] AdvReac Nausea & Verified 10/22/23 06:23 Vomiting morphine AdvReac Nausea & Verified 10/22/23 06:23 Vomiting Physical Exam Vitals: Vital Signs Temp Pulse Pulse Resp BP BP Pulse Ox 10/23/23 13:06 99.0 F 109 H 24 166/73 94 L 10/23/23 09:13 98 10/23/23 09:01 102 H 94 L 10/23/23 07:18 98.2 F 80 20 100/61 93 L 10/23/23 05:05 98 F 10/23/23 03:23 100.7 F H 10/23/23 02:17 100.1 F H 98 18 103/63 97 10/22/23 19:06 97.9 F 84 16 97/60 98 10/22/23 18:48 72 16 10/22/23 18:40 68 16 10/22/23 16:13 71 98/58 10/22/23 15:42 68 96/62 10/22/23 15:13 83 96/60 10/22/23 14:44 72 98/51 Intake and Output 10/22/23 10/23/23 10/23/23 22:59 06:59 14:59 Intake Total 320 2103.8 Output Total 118 557 8881 Balance 120 1753.8 -1700 Intake: Intake, IV Titration 203.8 Amount Ropivacaine 250 mg 203.8 Hydromorphone (Pf) 5 mg In Sodium Chloride 0.9% 200 ml @ Per Protocol EPIDURAL .Q0M PRN Rx#: [id number] Oral 320 1900 Output: Urine 819 715 1218 Other: Voiding Method Indwelling Catheter Indwelling Catheter PHYSICAL EXAM: VITAL SIGNS: [As above] GENERAL: Well-developed, well-nourished, alert and oriented x 2, raspy voice, no acute distress HEENT: Normocephalic, conjunctivae normal. eyes normal. MMM. NECK: Supple, no JVD. CARDIOVASCULAR: S1, S2 regular. No murmur RESPIRATION: Unlabored, equal air entry, breath sounds diminished in the bases. No rhonchi or crackles. No bronchial breathing. ABDOMEN: Soft, status post surgery, prevana wound VAC/dressing present, binder present. LEGS: No edema. no swelling , wearing SCDs NERVOUS SYSTEM: Cranial N 2-12 grossly normal. No focal deficits. Strength and sensation grossly intact. Skin: Warm and dry, no rash Results CBC & Chem 7: 10/22/23 14:44 10/23/23 01:55 Labs: Abnormal Lab Results - Last 24 Hours (Table) 10/22/23 10/22/23 10/22/23 Range/Units 14:44 14:44 19:47 RBC 3.69 L (3.80-5.40) m/uL MCV 100.8 H (80.0-100.0) fL Lymphocytes # 0.3 L (1.0-4.8) k/uL Potassium 3.3 L 3.4 L (3.5-5.1) mmol/L Glucose 126 H (74-99) mg/dL Assessment and Plan Assessment: Diverticulitis and rectal prolapse, status post lower anterior resection DTs, in a patient with alcohol abuse, drinks 1-1/2 bottles of wine daily Daily consumption of marijuana Gummies Obesity, BMI 28 History of PONV Bipolar Gastroesophageal reflux disease Fibromyalgia Hypertension Sleep apnea, does not wear CPAP History of Lyme disease Former nicotine dependence Plan: Continue on current medication regimen ,monitoring and symptomatic treatment. CIWA protocol ordered. IV fluid hydration. Midline catheter has been ordered for IV access as per general surgery. Pain management as per general surgery, currently Dilaudid IV push as patient pulled out her epidural catheter. Chest x-ray pending. Aggressive pulmonary toileting with incentive spirometer reinforced. PPI for GI prophylaxis. Subcu heparin for DVT prophylaxis in place. Prognosis guarded given multiple complex medical issues. The impression and plan of care has been dictated as directed. : I performed a history and examination of this patient, discussed the same with the dictator. I agree with the dictator's note ,documented as a scribe. Any additional findings or plans will be noted.
[2023-10-23] MEDS: FOLIC ACID 1 MG TAB PO SCH (16:21)
[2023-10-23] MEDS: ONDANSETRON 4 MG/2 ML VIAL IVP PRN (16:52)
[2023-10-23] MEDS ORDERED: diphenhydrAMINE 50 MG/ML 1 ML VIAL IVP PRN (17:46)
[2023-10-23] MEDS: LORazepam 2 MG/ML INJ IV PRN (17:58)
[2023-10-23] MEDS: ACETAMINOPHEN IV (For NPO) 1,000 MG in EMPTY BAG 1 BAG IVPB SCH (18:07)
[2023-10-23] MEDS: METOCLOPRAMIDE 5 MG/ML 2 ML VIAL IVP PRN (21:06)
[2023-10-23] MEDS: HEPARIN SODIUM,PORCINE 5,000 UNIT/ML 1 ML VIAL SQ SCH (21:06)
--- NOTE | 2023-10-23 22:44 | XR ---
EXAMINATION TYPE: XR chest 1V confirm line [facility] DATE OF EXAM: 10/23/2023 CLINICAL HISTORY: Line placement. TECHNIQUE: Single AP portable upright view of the chest is obtained. COMPARISON: Chest x-ray from earlier today FINDINGS: Left basilar opacity redemonstrated. Right lung is clear. Stable mild cardiomegaly. Osseou s structures are intact. IMPRESSION: Persistent left basilar acute infiltrate and/or atelectasis
[2023-10-24] MEDS: THIAMINE 100 MG TAB PO SCH (08:54)
[2023-10-24 10:48] LABS: Basophils # (A) 0.01 X 10*3/uL (0.00-0.10); Basophils % (A) 0.2 %; Eosinophils # (A) 0.05 X 10*3/uL (0.04-0.35); Eosinophils % (A) 0.9 %; HCT 29.5 % (37.2-46.3); HGB 10.1 g/dL (12.0-15.0); Lymphocytes # (A) 0.67 X 10*3/uL (0.90-5.00); Lymphocytes % (A) 11.5 %; MCH 32.9 pg (27.0-32.0); MCHC 34.2 g/dL (32.0-37.0); MCV 96.1 FL (80.0-97.0); Mean Platelet Volume 9.4 FL (9.5-12.2); Monocytes % (A) 6.8 %; NRBC Per 100 WBC 0 X 10*3/uL (0.00-0.01); Neutrophils % (A) 80.4 %; Platelet Count 187 X 10*3/uL (140-440); RBC 3.07 X 10*6/uL (4.10-5.20); RDW 11.9 % (11.5-14.5); WBC 5.84 X 10*3/uL (4.50-10.00)
[2023-10-24 11:05] LABS: BUN/Creat Ratio 12.22 Ratio (12.00-20.00); Calcium 8.4 mg/dL (8.7-10.3); Carbon Dioxide 22.8 mmol/L (21.6-31.8); Chloride 100 mmol/L (96-109); Glucose 93 mg/dL (70-110); Magnesium 1.7 mg/dL (1.5-2.4); Potassium 3.3 mmol/L (3.5-5.5); Sodium 136 mmol/L (135-145)
[2023-10-24] MEDS: LORazepam 2 MG/ML INJ IV PRN (11:54)
[2023-10-24] MEDS: MAGNESIUM SULFATE-D5W PMX 1 GM in DEXTROSE/WATER 1 100ML.BAG IVPB ONE (11:57)
[2023-10-24] MEDS: POTASSIUM CHLORIDE ER 20 MEQ TAB.ER PO STA (11:57)
--- NOTE | 2023-10-24 15:34 | P.PN ---
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 Nursing staff reports patient had her dog in the room this morning, jumping on her and pulled out IV. Patient has lost 3 IV sites, initially refusing for new IV access and midline catheter has been ordered per general surgery. Staff reporting patient was pulling at prevana wound VAC. Tmax 100.7, raspy throat. Upon returning back from chest x-ray, staff reports patient moving her arms all over,epidural pulled out. Pain management with Dilaudid IV push as per general surgery. Pain currently controlled. Mild tachycardia, IV fluids initiated. WBC 8.4, hemoglobin 12.3, platelets 266. Potassium 4. Denies chest pain, palpitations or shortness of breath. Maintaining O2 sats in the high 90s on room air. 10/24/2023 CIWA score 5 earlier this morning, currently 11, maintained on CIWA protocol. Pain controlled. Potassium ,magnesium supplemented. Occasional cough, nonproductive .chest x-ray reporting persistent left basilar acute infiltrate and or atelectasis .denies chest pain, palpitations or shortness of breath.Maintaining O2 sats in the 90s on room air. Pain currently controlled. Tmax 100.2. Normal WBC. Hemoglobin decreased, 10.1, platelets 187. Bicarb 23, BUN 11, creatinine 0.9. Patient reports she was up to the chair earlier today but it is too soon for her to walk. PT/OT consulted. Objective - Vital Signs Vital signs: Vital Signs Temp 99.8 F H 10/24/23 07:12 Pulse 89 10/24/23 07:12 Resp 18 10/24/23 07:12 BP 134/73 10/24/23 07:12 Pulse Ox 94 L 10/24/23 07:12 FiO2 Intake & Output 10/23/23 10/24/23 10/24/23 18:59 06:59 18:59 Intake Total 850 Output Total 2650 1450 Balance -1800 -1450 Intake: Intake, IV Titration 850 Amount ACETAMINOPHEN IV (For NPO 100 ) 1,000 mg In Empty Bag 1 bag @ 400 mls/hr IVPB Q6HR [facility] Rx#:[id number] Sodium Chloride 0.9% 1, 750 000 ml @ 125 mls/hr IV . Q8H [facility] Rx#:[id number] Output: Urine 2350 1450 Emesis 300 Other: Voiding Method Indwelling Catheter Indwelling Catheter Indwelling Catheter # Emeses 2 - Exam VITAL SIGNS: [As above] GENERAL:alert and oriented x 3, no acute distress, calm, cooperative HEENT: Normocephalic, conjunctivae normal. eyes normal. MMM. NECK: Supple, no JVD. CARDIOVASCULAR: S1, S2 regular. No murmur RESPIRATION: Unlabored, equal air entry, breath sounds diminished in the bases. ABDOMEN: Soft, status post surgery, prevana wound VAC/dressing present, binder present. LEGS: No edema. no swelling , wearing SCDs NERVOUS SYSTEM: Cranial N 2-12 grossly normal. No focal deficits. Strength and sensation grossly intact. Fine tremors. Skin: Warm and dry, no rash - Labs CBC & Chem 7: 10/24/23 05:38 10/24/23 05:38 Labs: Abnormal Lab Results - Last 24 Hours (Table) 10/24/23 10/24/23 Range/Units 05:38 05:38 RBC 3.07 L (4.10-5.20) X 10*6/uL Hgb 10.1 L (12.0-15.0) g/dL Hct 29.5 L (37.2-46.3) % MCH 32.9 H (27.0-32.0) pg MPV 9.4 L (9.5-12.2) FL Lymphocytes # 0.67 L (0.90-5.00) X 10*3/uL Potassium 3.3 L (3.5-5.5) mmol/L Anion Gap 13.20 H (4.00-12.00) mmol/L Calcium 8.4 L (8.7-10.3) mg/dL Assessment and Plan Assessment: Diverticulitis and rectal prolapse, status post lower anterior resection DTs, in a patient with alcohol abuse, drinks 1-1/2 bottles of wine daily Daily consumption of marijuana Gummies Obesity, BMI 28 History of PONV Bipolar Gastroesophageal reflux disease Fibromyalgia Hypertension Sleep apnea, does not wear CPAP History of Lyme disease Former nicotine dependence Hypomagnesemia Hypokalemia Plan: Continue on current medication regimen ,monitoring and symptomatic treatment. Potassium and magnesium supplements ordered. maintain CIWA protocol ordered. IV fluid hydration. Pain management as per general surgery. Continue aggressive pulmonary toileting with incentive spirometer reinforced. PT/OT consulted. Prognosis guarded given multiple complex medical issues. The impression and plan of care has been dictated as directed. : I performed a history and examination of this patient, discussed the same with the dictator. I agree with the dictator's note ,documented as a scribe. Any additional findings or plans will be noted.
--- NOTE | 2023-10-24 15:39 | P.PN ---
Subjective Progress Note Date: 10/24/23 CHIEF COMPLAINT: Diverticulitis and rectal prolapse HISTORY OF PRESENT ILLNESS: Patient postop day #2 status post lower anterior resection. Patient does complain of abdominal pain. She did pull out her e pidural yesterday. Kovacs catheter scheduled to be removed today. She did have 1 episode of vomiting this morning. No bowel activity. Low-grade temp 100.2. WBC 5.84 Hgb 10.1 potassium 3.3 magnesium 1.7 Patient seen and examined with Dr. Atkinson PHYSICAL EXAM: VITAL SIGNS: Reviewed. GENERAL: Well-developed in no acute distress. ABDOMEN: Soft. Nondistended. Prevana wound VAC intact. NEUROLOGIC: Alert and oriented. Cranial nerves II through XII grossly intact. ASSESSMENT: 1. Diverticulitis and rectal prolapse 2. Possible atelectasis 3. Daily EtOH use PLAN: -Continue clear liquids -Continue IV fluids -Encourage patient to increase activity level -Encourage patient to use incentive spirometer -Medicine service replacing magnesium and potassium -Continue CIWA protocol for EtOH use -DVT prophylaxis subcu heparin and GI prophylaxis Protonix Physician Special Projects Manager note has been reviewed by physician. Signing provider agrees with the documented findings, assessment, and plan of care. Objective - Vital Signs Vital signs: Vital Signs Temp 100.2 F H 10/24/23 11:51 Pulse 100 10/24/23 11:51 Resp 17 10/24/23 11:51 BP 143/81 10/24/23 11:51 Pulse Ox 93 L 10/24/23 11:51 FiO2 Intake & Output 10/23/23 10/24/23 10/24/23 18:59 06:59 18:59 Intake Total 850 Output Total 2650 1450 800 Balance -1800 -1450 -800 Intake: Intake, IV Titration 850 Amount ACETAMINOPHEN IV (For NPO 100 ) 1,000 mg In Empty Bag 1 bag @ 400 mls/hr IVPB Q6HR [facility] Rx#:[id number] Sodium Chloride 0.9% 1, 750 000 ml @ 125 mls/hr IV . Q8H [facility] Rx#:[id number] Output: Urine 2350 1450 800 Emesis 300 Other: Voiding Method Indwelling Catheter Indwelling Catheter Indwelling Catheter # Voids 1 # Emeses 2 - Labs CBC & Chem 7: 10/24/23 05:38 10/24/23 05:38 Labs: Abnormal Lab Results - Last 24 Hours (Table) 10/24/23 10/24/23 Range/Units 05:38 05:38 RBC 3.07 L (4.10-5.20) X 10*6/uL Hgb 10.1 L (12.0-15.0) g/dL Hct 29.5 L (37.2-46.3) % MCH 32.9 H (27.0-32.0) pg MPV 9.4 L (9.5-12.2) FL Lymphocytes # 0.67 L (0.90-5.00) X 10*3/uL Potassium 3.3 L (3.5-5.5) mmol/L Anion Gap 13.20 H (4.00-12.00) mmol/L Calcium 8.4 L (8.7-10.3) mg/dL
[2023-10-24] MEDS: KETOROLAC 15 MG/ML 1 ML VIAL IVP PRN (17:16)
[2023-10-24] MEDS: ALTEPLASE 2 MG VIAL (CATHFLO) IV STA (19:07)
[2023-10-25 08:56] LABS: Glucose 82 mg/dL (70-110)
[2023-10-25 08:57] LABS: Calcium 8.2 mg/dL (8.7-10.3); Carbon Dioxide 21.8 mmol/L (21.6-31.8); Chloride 103 mmol/L (96-109); Magnesium 2.1 mg/dL (1.5-2.4); Potassium 3.5 mmol/L (3.5-5.5); Sodium 139 mmol/L (135-145)
[2023-10-25 08:59] LABS: Basophils # (A) 0.02 X 10*3/uL (0.00-0.10); Basophils % (A) 0.7 %; Eosinophils # (A) 0.06 X 10*3/uL (0.04-0.35); Eosinophils % (A) 2.1 %; HCT 31.4 % (37.2-46.3); HGB 10.8 g/dL (12.0-15.0); Immature Grans, Automated 0 %; Lymphocytes # (A) 0.66 X 10*3/uL (0.90-5.00); MCH 32.4 pg (27.0-32.0); MCHC 34.4 g/dL (32.0-37.0); MCV 94.3 FL (80.0-97.0); Mean Platelet Volume 9.2 FL (9.5-12.2); Monocytes # (A) 0.37 X 10*3/uL (0.20-1.00); Monocytes % (A) 12.9 %; NRBC Per 100 WBC 0 X 10*3/uL (0.00-0.01); Neutrophils # (A) 1.76 X 10*3/uL (1.80-7.70); Neutrophils % (A) 61.3 %; Platelet Count 246 X 10*3/uL (140-440); RBC 3.33 X 10*6/uL (4.10-5.20); RDW 11.9 % (11.5-14.5); WBC 2.87 X 10*3/uL (4.50-10.00)
--- NOTE | 2023-10-25 13:05 | P.PN ---
Kathya Hassan is a 68-year-old female known to the practice. She has multiple medical problems and underwent a low anterior resection and a rectal prolapse repair, she is postop day 3. She has a known history of daily wine drinking on the bottle on average daily, her course been complicated by nausea, she is currently n.p.o., she indicates she is not sleeping well, she was found ambulating in the aguilar today with her Midline failed to work after alteplase infusion. Vital signs currently show the Tmax 100.2 from yesterday at 11:51 AM. Laboratory studies show WBC count of 2.7 hemoglobin 10.8 hematocrit 31.4 and platelets are 246 chemistries were essentially normal except for slightly elevated anion gap Patient is currently on Compazine and alvimopan for nausea. Objective - Vital Signs Vital signs: Vital Signs Temp 99.2 F 10/25/23 10:03 Pulse 92 10/25/23 09:42 Resp 17 10/25/23 07:47 BP 152/80 10/25/23 07:47 Pulse Ox 94 L 10/25/23 07:47 FiO2 Intake & Output 10/24/23 10/25/23 10/25/23 18:59 06:59 18:59 Output Total 800 Balance -800 Output: Urine 800 Other: Voiding Method Indwelling Catheter Toilet Toilet # Voids 1 1 - Exam General: The patient is awake and alert, in mild distress while ambulating the halls due to her mild abdominal pain Neck: The neck is supple, there is no thyromegaly, lymphadenopathy, tenderness or JVD. Cardiovascular: S1S2 is normal, There is a regular rate and rhythm. No murmur, rub or gallop is appreciated. Respiratory: Lungs are clear to auscultation bilaterally, respirations are non-labored, breath sounds are equal. Gastrointestinal: Soft, non-distended, abdominal binder is in place. Scant positive bowel sounds noted in all quadrants Musculoskeletal: Normal ROM, no tenderness, There is no pedal edema. There is no calf tenderness or swelling. No cords were appreciated. The swelling in the right arm at the antecubital fossa where the midline was is improved since discontinuation Neurological: CN II-XII intact, there are no obvious motor or sensory deficits. Coordination appears grossly intact. Speech is normal. Skin: Skin is warm and dry and no rashes or lesions are noted. Short - Labs CBC & Chem 7: 10/25/23 05:32 10/25/23 05:32 Labs: Abnormal Lab Results - Last 24 Hours (Table) 10/25/23 10/25/23 Range/Units 05:32 05:32 WBC 2.87 L (4.50-10.00) X 10*3/uL RBC 3.33 L (4.10-5.20) X 10*6/uL Hgb 10.8 L (12.0-15.0) g/dL Hct 31.4 L (37.2-46.3) % MCH 32.4 H (27.0-32.0) pg MPV 9.2 L (9.5-12.2) FL Neutrophils # 1.76 L (1.80-7.70) X 10*3/uL Lymphocytes # 0.66 L (0.90-5.00) X 10*3/uL Anion Gap 14.20 H (4.00-12.00) mmol/L Calcium 8.2 L (8.7-10.3) mg/dL Assessment and Plan Plan: iverticulitis and rectal prolapse, status post lower anterior resection, postop day 3 DTs, in a patient with alcohol abuse, drinks 1-1/2 bottles of wine daily, continue CIWA protocol Daily consumption of marijuana Gummies Leukopenia: Will continue Compazine as is possible cause for this and recheck her CBC and 12 and 24 hours, recheck blood chemistries and 24 hours Obesity, BMI 28 History of PONV Bipolar Gastroesophageal reflux disease Fibromyalgia Hypertension Sleep apnea, does not wear CPAP History of Lyme disease Former nicotine dependence Hypomagnesemia Hypokalemia Constipation Other than the Compazine she will continue on her current medications, continue ambulating in the aguilar, I will add some Vistaril to aid with her sleep. Repeat labs in a.m., she will be reevaluated in the next 24 hours
--- NOTE | 2023-10-25 15:53 | P.PN ---
Subjective Progress Note Date: 10/25/23 CHIEF COMPLAINT: Diverticulitis and rectal prolapse HISTORY OF PRESENT ILLNESS: Patient postop day #3 status post lower anterior resection. Patient had nausea vomiting and increased abdominal distention y esterday. She is currently NPO. And likely has developed an ileus. She denies any bowel activity. Afebrile. WBC 2.87 Hgb 10.8 platelets 246. Patient's midline is out she has a peripheral IV Patient seen and examined with Dr. Atkinson PHYSICAL EXAM: VITAL SIGNS: Reviewed. GENERAL: Well-developed in no acute distress. ABDOMEN: Soft. Nondistended. Prevana wound VAC intact with some shadowing NEUROLOGIC: Alert and oriented. Cranial nerves II through XII grossly intact. ASSESSMENT: 1. Diverticulitis and rectal prolapse 2. Possible atelectasis 3. Daily EtOH use 4. Postoperative ileus can be an expected complication after surgery PLAN: -Keep patient n.p.o. -Encourage patient to ambulate in the hallway -Encourage patient to use incentive spirometer hi Dr. Atkinson -Continue IV fluids -Continue CIWA protocol for EtOH use -Unfortunately cannot start Reglan due to patient being on Seroquel. The medications interact -DVT prophylaxis subcu heparin and GI prophylaxis Protonix Physician Commodities Clerk note has been reviewed by physician. Signing provider agrees with the documented findings, assessment, and plan of care. Objective - Vital Signs Vital signs: Vital Signs Temp 98.8 F 10/25/23 13:04 Pulse 98 10/25/23 13:04 Resp 18 10/25/23 13:04 BP 162/75 10/25/23 13:04 Pulse Ox 93 L 10/25/23 13:04 FiO2 Intake & Output 10/24/23 10/25/23 10/25/23 18:59 06:59 18:59 Output Total 800 Balance -800 Output: Urine 800 Other: Voiding Method Indwelling Catheter Toilet Toilet # Voids 1 1 - Labs CBC & Chem 7: 10/25/23 05:32 10/25/23 05:32 Labs: Abnormal Lab Results - Last 24 Hours (Table) 10/25/23 10/25/23 Range/Units 05:32 05:32 WBC 2.87 L (4.50-10.00) X 10*3/uL RBC 3.33 L (4.10-5.20) X 10*6/uL Hgb 10.8 L (12.0-15.0) g/dL Hct 31.4 L (37.2-46.3) % MCH 32.4 H (27.0-32.0) pg MPV 9.2 L (9.5-12.2) FL Neutrophils # 1.76 L (1.80-7.70) X 10*3/uL Lymphocytes # 0.66 L (0.90-5.00) X 10*3/uL Anion Gap 14.20 H (4.00-12.00) mmol/L Calcium 8.2 L (8.7-10.3) mg/dL
[2023-10-25] MEDS: PIPERACILLIN-TAZOBACTAM 3.375 GM in SODIUM CHLORIDE 0.9% 100 ML IVPB SCH (16:17)
[2023-10-25 18:12] LABS: Basophils % (A) 0 %; Eosinophils # (A) 0.1 k/uL (0-0.7); Eosinophils % (A) 2 %; HCT 30.8 % (34.0-46.0); HGB 10.3 gm/dL (11.4-16.0); Lymphocytes # (A) 0.7 k/uL (1.0-4.8); Lymphocytes % (A) 23 %; MCH 33.2 pg (25.0-35.0); MCHC 33.5 g/dL (31.0-37.0); Mean Platelet Volume 6.8; Monocytes # (A) 0.3 k/uL (0-1.0); Monocytes % (A) 10 %; Neutrophils # (A) 1.9 k/uL (1.3-7.7); Neutrophils % (A) 63 %; Platelet Count 280 k/uL (150-450); RBC 3.11 m/uL (3.80-5.40); RDW 11.9 % (11.5-15.5)
[2023-10-25 18:18] LABS: Appearance,Urine Clear (Clear); Bacteria,Urine Occasional /hpf; Bilirubin,Urine Negative (Negative); Blood,Urine Large (Negative); Color,Urine Colorless; Glucose,Urine (UA) Negative (Negative); Ketones,Urine 2+ (Negative); Leukocyte Esterase,Urine Negative (Negative); Nitrite,Urine Negative (Negative); PH, Urine 5.5 (5.0-8.0); Protein,Urine Negative (Negative); RBC,Urine >182 /hpf (0-5); Specific Gravity,Urine 1.008 (1.001-1.035); Urobilinogen,Urine <2.0 mg/dL (<2.0); WBC,Urine 11 /hpf (0-5)
[2023-10-25] MEDS: hydrOXYzine pamoate 25 MG CAP PO PRN (21:00)
[2023-10-25] MEDS: FAMOTIDINE 20 MG/2 ML VIAL IV SCH (22:48)
--- NOTE | 2023-10-26 06:46 | XR ---
EXAMINATION TYPE: XR abdomen 2V DATE OF EXAM: 10/26/2023 CLINICAL HISTORY: Nausea/vomiting. Abdominal pain after surgery. TECHNIQUE: 2 supine KUB images of the abdomen are obtained. COMPARISON: CT August 18, 2022 FINDINGS: Gas prominent and slightly dilated small bowel loops in the left abdomen. Nondistended gas- filled small bowel loops in the right abdomen. Possibility of colonic bowel gas. Gas is seen in nondi stended stomach. Cholecystectomy clips are redemonstrated vertical oriented liseth overlie the lower abdomen and pelvis. Surgical sutures in the left pelvis are seen. There is left basilar atelectasis and/or scarring. Osseous structures are intact. IMPRESSION: Overall nonspecific bowel gas pattern.
[2023-10-26 08:31] LABS: Basophils # (A) 0.02 X 10*3/uL (0.00-0.10); Basophils % (A) 0.4 %; Eosinophils # (A) 0.15 X 10*3/uL (0.04-0.35); Eosinophils % (A) 3.1 %; HCT 32.6 % (37.2-46.3); HGB 11.2 g/dL (12.0-15.0); Lymphocytes # (A) 0.95 X 10*3/uL (0.90-5.00); Lymphocytes % (A) 19.7 %; MCH 32.7 pg (27.0-32.0); MCHC 34.4 g/dL (32.0-37.0); MCV 95.3 FL (80.0-97.0); Mean Platelet Volume 9.2 FL (9.5-12.2); Monocytes % (A) 12.4 %; NRBC Per 100 WBC 0 X 10*3/uL (0.00-0.01); Neutrophils # (A) 3.09 X 10*3/uL (1.80-7.70); Platelet Count 278 X 10*3/uL (140-440); RBC 3.42 X 10*6/uL (4.10-5.20); RDW 12.2 % (11.5-14.5); WBC 4.83 X 10*3/uL (4.50-10.00)
[2023-10-26 08:40] LABS: BUN/Creat Ratio 12.75 Ratio (12.00-20.00); Blood Urea Nitrogen 10.2 mg/dL (9.0-27.0); Calcium 7.8 mg/dL (8.7-10.3); Carbon Dioxide 17.9 mmol/L (21.6-31.8); Chloride 106 mmol/L (96-109); Glucose 80 mg/dL (70-110); Magnesium 1.9 mg/dL (1.5-2.4); Potassium 3.3 mmol/L (3.5-5.5); Sodium 140 mmol/L (135-145)
[2023-10-26] MEDS ORDERED: FAMOTIDINE 20 MG/2 ML VIAL IV SCH (09:00)
[2023-10-26] MEDS: POTASSIUM CHLORIDE ER 20 MEQ TAB.ER PO SCH (09:48)
--- NOTE | 2023-10-26 11:59 | P.PN ---
Kathya Hassan is a 68-year-old female known to the practice. She has multiple medical problems and underwent a low anterior resection and a rectal prolapse repair, she is postop day 3. She has a known history of daily wine drinking on the bottle on average daily, her course been complicated by nausea, she is currently n.p.o., she indicates she is not sleeping well, she was found ambulating in the aguilar today with her Midline failed to work after alteplase infusion. Vital signs currently show the Tmax 100.2 from yesterday at 11:51 AM. Laboratory studies show WBC count of 2.7 hemoglobin 10.8 hematocrit 31.4 and platelets are 246 chemistries were essentially normal except for slightly elevated anion gap Patient is currently on Compazine and alvimopan for nausea. 10/26/2023: patient had large Bm x 2 recently. She is feeling better today but had nausea ongoing last nighyt .She is on NPO/ice chips only.She remains on Zosyn. Abd xray reviewed. Case d/w surgery. Mild ileus noted per surgery. Objective - Vital Signs Vital signs: Vital Signs Temp 98 F 10/26/23 07:40 Pulse 82 10/26/23 07:40 Resp 17 10/26/23 07:40 BP 150/80 10/26/23 07:40 Pulse Ox 98 10/26/23 07:40 FiO2 Intake & Output 10/25/23 10/26/23 10/26/23 18:59 06:59 18:59 Intake Total 1855 Output Total 350 Balance 1505 Intake: Intake, IV Titration 1375 Amount Sodium Chloride 0.9% 1, 1375 000 ml @ 125 mls/hr IV . Q8H [facility] Rx#:[id number] Oral 480 Output: Stool 150 Emesis 200 Other: Voiding Method Toilet Toilet # Voids 3 5 # Bowel Movements 1 - Exam General: The patient is awake and alert, in mild distress while ambulating the halls due to her mild abdominal pain Neck: The neck is supple, there is no thyromegaly, lymphadenopathy, tenderness or JVD. Cardiovascular: S1S2 is normal, There is a regular rate and rhythm. No murmur, rub or gallop is appreciated. Respiratory: Lungs are clear to auscultation bilaterally, respirations are non-labored, breath sounds are equal. Gastrointestinal: Soft, non-distended, abdominal binder is in place. positive bowel sounds noted in all quadrants improved from yesterday,dressing CDI Musculoskeletal: Normal ROM, no tenderness, There is no pedal edema. There is no calf tenderness or swelling. No cords were appreciated. The swelling in the right arm at the antecubital fossa where the midline was is improved since discontinuation Neurological: CN II-XII intact, there are no obvious motor or sensory deficits. Coordination appears grossly intact. Speech is normal. Skin: Skin is warm and dry and no rashes or lesions are noted. Short - Labs CBC & Chem 7: 10/26/23 04:08 10/26/23 04:05 Labs: Abnormal Lab Results - Last 24 Hours (Table) 10/25/23 10/25/23 10/26/23 Range/Units 17:51 18:00 04:05 WBC 3.0 L (3.8-10.6) k/uL RBC 3.11 L (3.80-5.40) m/uL Hgb 10.3 L (11.4-16.0) gm/dL Hct 30.8 L (34.0-46.0) % MCH (27.0-32.0) pg MPV (9.5-12.2) FL Lymphocytes # 0.7 L (1.0-4.8) k/uL Potassium 3.3 L (3.5-5.5) mmol/L Carbon Dioxide 17.9 L (21.6-31.8) mmol/L Anion Gap 16.10 H (4.00-12.00) mmol/L Calcium 7.8 L (8.7-10.3) mg/dL Urine Ketones 2+ H (Negative) Urine Blood Large H (Negative) Urine RBC >182 H (0-5) /hpf Urine WBC 11 H (0-5) /hpf Urine Bacteria Occasional H (None) /hpf 10/26/23 Range/Units 04:08 WBC (3.8-10.6) k/uL RBC 3.42 L (3.80-5.40) m/uL Hgb 11.2 L (11.4-16.0) gm/dL Hct 32.6 L (34.0-46.0) % MCH 32.7 H (27.0-32.0) pg MPV 9.2 L (9.5-12.2) FL Lymphocytes # (1.0-4.8) k/uL Potassium (3.5-5.5) mmol/L Carbon Dioxide (21.6-31.8) mmol/L Anion Gap (4.00-12.00) mmol/L Calcium (8.7-10.3) mg/dL Urine Ketones (Negative) Urine Blood (Negative) Urine RBC (0-5) /hpf Urine WBC (0-5) /hpf Urine Bacteria (None) /hpf Microbiology - Last 24 Hours (Table) 10/25/23 13:11 Gram Stain - Final Sputum Sputum Culture - Final Assessment and Plan Plan: iverticulitis and rectal prolapse, status post lower anterior resection, postop day 4 DTs, in a patient with alcohol abuse, drinks 1-1/2 bottles of wine daily, continue CIWA protocol Daily consumption of marijuana Gummies Leukopenia: resolved, compazine stopeed Obesity, BMI 28 History of PONV Bipolar Gastroesophageal reflux disease Fibromyalgia Hypertension Sleep apnea, does not wear CPAP History of Lyme disease Former nicotine dependence Hypomagnesemia Hypokalemia Constipation continue ambulating in the aguilar continue meds and Kcl replacemnt Repeat labs in a.m., she will be reevaluated in the next 24 hours
--- NOTE | 2023-10-26 14:21 | P.PN ---
Subjective Progress Note Date: 10/26/23 CHIEF COMPLAINT: Diverticulitis and rectal prolapse HISTORY OF PRESENT ILLNESS: Patient postop day #4 status post lower anterior resection. patient had increase in abdominal pain during the night. Then she had episodes of vomiting 2 and then had 2 bowel movements. Patient reports decrease in pain and abdominal distention. Abdominal x-ray reports nonspecific bowel gas pattern. Afebrile.WBC 4.83 potassium 3.3 and being replaced Patient seen and examined with Dr. Atkinson PHYSICAL EXAM: VITAL SIGNS: Reviewed. GENERAL: Well-developed in no acute distress. ABDOMEN: Soft. less distended. Prevana wound VAC intact with some shadowing NEUROLOGIC: Alert and oriented. Cranial nerves II through XII grossly intact. ASSESSMENT: 1. Diverticulitis and rectal prolapse 2. Possible atelectasis 3. Daily EtOH use 4. Postoperative ileus can be an expected complication after surgery. Ileus improving PLAN: -Keep patient n.p.o.for today -Start clear liquid diet for breakfast tomorrow -Encourage patient to ambulate in the hallway -Encourage patient to use incentive spirometer -Continue IV fluids -Continue CIWA protocol for EtOH use -DVT prophylaxis subcu heparin and GI prophylaxis Protonix Physician Adult Neuropsychologist note has been reviewed by physician. Signing provider agrees with the documented findings, assessment, and plan of care. Objective - Vital Signs Vital signs: Vital Signs Temp 98.2 F 10/26/23 13:22 Pulse 91 10/26/23 13:22 Resp 19 10/26/23 13:22 BP 149/90 10/26/23 13:22 Pulse Ox 100 10/26/23 13:22 FiO2 Intake & Output 10/25/23 10/26/23 10/26/23 18:59 06:59 18:59 Intake Total 1855 Output Total 350 Balance 1505 Weight 76.2 kg Intake: Intake, IV Titration 1375 Amount Sodium Chloride 0.9% 1, 1375 000 ml @ 125 mls/hr IV . Q8H [facility] Rx#:[id number] Oral 480 Output: Stool 150 Emesis 200 Other: Voiding Method Toilet Toilet Toilet # Voids 3 5 # Bowel Movements 1 3 - Labs CBC & Chem 7: 10/26/23 04:08 10/26/23 04:05 Labs: Abnormal Lab Results - Last 24 Hours (Table) 0710/25/23 10/26/23 Range/Units 17:51 18:00 04:05 WBC 3.0 L (3.8-10.6) k/uL RBC 3.11 L (3.80-5.40) m/uL Hgb 10.3 L (11.4-16.0) gm/dL Hct 30.8 L (34.0-46.0) % MCH (27.0-32.0) pg MPV (9.5-12.2) FL Lymphocytes # 0.7 L (1.0-4.8) k/uL Potassium 3.3 L (3.5-5.5) mmol/L Carbon Dioxide 17.9 L (21.6-31.8) mmol/L Anion Gap 16.10 H (4.00-12.00) mmol/L Calcium 7.8 L (8.7-10.3) mg/dL Urine Ketones 2+ H (Negative) Urine Blood Large H (Negative) Urine RBC >182 H (0-5) /hpf Urine WBC 11 H (0-5) /hpf Urine Bacteria Occasional H (None) /hpf 10/26/23 Range/Units 04:08 WBC (3.8-10.6) k/uL RBC 3.42 L (3.80-5.40) m/uL Hgb 11.2 L (11.4-16.0) gm/dL Hct 32.6 L (34.0-46.0) % MCH 32.7 H (27.0-32.0) pg MPV 9.2 L (9.5-12.2) FL Lymphocytes # (1.0-4.8) k/uL Potassium (3.5-5.5) mmol/L Carbon Dioxide (21.6-31.8) mmol/L Anion Gap (4.00-12.00) mmol/L Calcium (8.7-10.3) mg/dL Urine Ketones (Negative) Urine Blood (Negative) Urine RBC (0-5) /hpf Urine WBC (0-5) /hpf Urine Bacteria (None) /hpf Microbiology - Last 24 Hours (Table) 10/25/23 13:11 Gram Stain - Final Sputum Sputum Culture - Final
--- NOTE | 2023-10-26 15:24 | XR ---
EXAMINATION TYPE: XR chest 2V DATE OF EXAM: 10/26/2023 COMPARISON: 10/23/2023 HISTORY: 68 year-old female with fever TECHNIQUE: Frontal and lateral views FINDINGS: Heart normal size. Aorta and pulmonary vasculature within normal limits. There is some blunting of th e left lateral costophrenic angle. Cholecystectomy clips. Some air-fluid levels in the visualized upp er abdomen. No consolidation seen. IMPRESSION: Development of a trace left pleural effusion. Some air-fluid levels in the visualized upper abdomen m ay reflect a generalized ileus.
[2023-10-26] MEDS ORDERED: Potassium Replacement Protocol 1 EACH MISC MISCELLANE PRN (22:41)
[2023-10-26] MEDS: POTASSIUM CHLORIDE 10 MEQ in WATER FOR INJECTION 1 100ML.BAG IVPB SCH (22:48)
[2023-10-27 09:40] LABS: Basophils # (A) 0.02 X 10*3/uL (0.00-0.10); Basophils % (A) 0.3 %; Eosinophils % (A) 1.4 %; HCT 30.9 % (37.2-46.3); HGB 10.5 g/dL (12.0-15.0); Lymphocytes # (A) 1.26 X 10*3/uL (0.90-5.00); Lymphocytes % (A) 17.9 %; MCH 32.4 pg (27.0-32.0); MCV 95.4 FL (80.0-97.0); Monocytes # (A) 0.78 X 10*3/uL (0.20-1.00); Monocytes % (A) 11.1 %; NRBC Per 100 WBC 0 X 10*3/uL (0.00-0.01); Neutrophils # (A) 4.84 X 10*3/uL (1.80-7.70); Neutrophils % (A) 68.9 %; Platelet Count 279 X 10*3/uL (140-440); RBC 3.24 X 10*6/uL (4.10-5.20); RDW 12.1 % (11.5-14.5); WBC 7.03 X 10*3/uL (4.50-10.00)
[2023-10-27 09:54] LABS: Blood Urea Nitrogen 14.6 mg/dL (9.0-27.0); Chloride 110 mmol/L (96-109); Glucose 89 mg/dL (70-110); Potassium 3.7 mmol/L (3.5-5.5); Sodium 140 mmol/L (135-145)
[2023-10-27] MEDS: POTASSIUM CHLORIDE ER 20 MEQ TAB.ER PO SCH (11:09)
--- NOTE | 2023-10-27 12:51 | P.PN ---
Subjective Progress Note Date: 10/27/23 Principal diagnosis: severe diverticulosis rectal prolapse postop day 5 bowel resection with rectal prolapse repair Patient has had 2-3 loose stools daily, abdomen is still bloated but soft minimal tenderness positive bowel sounds Objective - Vital Signs Vital signs: Vital Signs Temp 98.4 F 10/27/23 07:45 Pulse 84 10/27/23 07:45 Resp 17 10/27/23 07:45 BP 142/80 10/27/23 07:45 Pulse Ox 97 10/27/23 07:45 FiO2 Intake & Output 10/26/23 10/27/23 10/27/23 18:59 06:59 18:59 Weight 76.2 kg Other: Voiding Method Toilet Toilet # Voids 3 3 # Bowel Movements 1 1 - Exam General: [Patient awake, alert and oriented times 3. Patient in no acute distress.] HEENT: [PERRL. EOMI. No pharyngeal erythema or exudate.] Neck: [No adenopathy.] Cardiac: [Heart regular in rate and rhythm. No S3. No S4. No clicks, rubs. No murmur.] Lungs: [Clear to auscultation bilaterally.] Abdomen: [No mass. No organomegaly. Bowel sounds presnt and normoactive in all 4 quadrants.] Extremes: [No edema no cyanosis no claudication normal pulses] : normal female genitalia Musculoskeletal: [No joint erythema, edema or tenderness.] Skin: [No rash.] Neurologic: [No lateralizing deficits. CN II - XII grossly intact.] Lymphatic: [No adenopathy.] - Labs CBC & Chem 7: 10/27/23 05:43 10/27/23 05:43 Labs: Abnormal Lab Results - Last 24 Hours (Table) 10/27/23 10/27/23 Range/Units 05:43 05:43 RBC 3.24 L (4.10-5.20) X 10*6/uL Hgb 10.5 L (12.0-15.0) g/dL Hct 30.9 L (37.2-46.3) % MCH 32.4 H (27.0-32.0) pg MPV 9.0 L (9.5-12.2) FL Chloride 110 H (96-109) mmol/L Carbon Dioxide 18.0 L (21.6-31.8) mmol/L Calcium 8.0 L (8.7-10.3) mg/dL Microbiology - Last 24 Hours (Table) 10/25/23 18:00 Urine Culture - Preliminary Urine,Voided Assessment and Plan (1) Diverticulosis Current Visit: Yes Status: Acute Code(s): K57.90 - DVRTCLOS OF INTEST, PART UNSP, W/O PERF OR ABSCESS W/O BLEED SNOMED Code(s): 535459711 (2) Rectal prolapse Current Visit: Yes Status: Acute Code(s): K62.3 - RECTAL PROLAPSE SNOMED Code(s): 90242596 (3) S/P colon resection Current Visit: Yes Status: Acute Code(s): Z90.49 - ACQUIRED ABSENCE OF OTHER SPECIFIED PARTS OF DIGESTIVE TRACT SNOMED Code(s): 606388159 (4) Dehydration Current Visit: No Status: Acute Code(s): E86.0 - DEHYDRATION SNOMED Code(s): 03261844 Plan: status post sigmoid colon resection with rectal prolapse repair postop day 5 Patient complains of abdominal bloating otherwise moving bowels positive bowel sounds Significantly improved Anticipate discharge over the next 24-48 hours Time with Patient: Greater than 30
[2023-10-27] MEDS: CHOLESTYRAMINE (WITH SUGAR) 4 GM PACKET PO SCH (15:07)
--- NOTE | 2023-10-27 16:06 | P.PN ---
Progress Note - Text Progress Note Date: 10/27/23 CHIEF COMPLAINT: Diverticulitis and rectal prolapse HISTORY OF PRESENT ILLNESS: Patient postop day #5 status post lower anterior resection. Patient states she feels much better today. She was ambulating the hallways when seen. She states nausea is improved. She states she just started CLD couple hours ago and is tolerating PHYSICAL EXAM: VITAL SIGNS: Reviewed. GENERAL: Well-developed in no acute distress. ABDOMEN: Soft. less distended. Prevana wound VAC intact with some shadowing NEUROLOGIC: Alert and oriented. Cranial nerves II through XII grossly intact. ASSESSMENT: 1. Diverticulitis and rectal prolapse 2. Possible atelectasis 3. Daily EtOH use 4. Postoperative ileus can be an expected complication after surgery. Ileus improving PLAN: -CLD -Encourage patient to ambulate in the hallway -Encourage patient to use incentive spirometer -Continue IV fluids -Continue CIWA protocol for EtOH use -DVT prophylaxis subcu heparin and GI prophylaxis Protonix
[2023-10-27] MEDS: ONDANSETRON 4 MG/2 ML VIAL IVP PRN (17:05)
[2023-10-27] MEDS: LORazepam 1 MG TAB PO PRN (20:42)
[2023-10-28 09:40] LABS: Magnesium 1.6 mg/dL (1.5-2.4); Potassium 3.4 mmol/L (3.5-5.5)
--- NOTE | 2023-10-28 10:30 | P.PN ---
Subjective Progress Note Date: 10/28/23 Patient feels well. She wants more to eat. She has had multiple bowel movements. On exam vital signs are stable. Abdomen soft. Patient will be advanced to regular diet. She will IV Hep-Lock. We dissipate discharge home tomorrow. Objective - Vital Signs Vital signs: Vital Signs Temp 98.7 F 10/28/23 08:00 Pulse 80 10/28/23 08:00 Resp 16 10/28/23 08:00 BP 152/76 10/28/23 08:00 Pulse Ox 95 10/28/23 08:00 FiO2 Intake & Output 10/27/23 10/28/23 10/28/23 18:59 06:59 18:59 Intake Total 540 Balance 540 Intake: Oral 540 Other: Voiding Method Toilet Toilet Toilet # Voids 3 3 - Labs CBC & Chem 7: 10/27/23 05:43 10/28/23 03:14 Labs: Abnormal Lab Results - Last 24 Hours (Table) 10/28/23 Range/Units 03:14 Potassium 3.4 L (3.5-5.5) mmol/L Microbiology - Last 24 Hours (Table) 10/25/23 18:00 Urine Culture - Final Urine,Voided Escherichia coli
[2023-10-28] MEDS ORDERED: Magnesium Replacement Protocol 1 EACH MISC MISCELLANE PRN (10:46)
[2023-10-28] MEDS: MAGNESIUM SULFATE-D5W PMX 1 GM in DEXTROSE/WATER 1 100ML.BAG IVPB SCH (10:57)
[2023-10-28] MEDS: POTASSIUM CHLORIDE ER 20 MEQ TAB.ER PO SCH ×3 (10:57→21:44)
--- NOTE | 2023-10-28 11:46 | P.PN ---
Subjective Progress Note Date: 10/28/23 Principal diagnosis: severe diverticulosis rectal prolapse postop day 5 bowel resection with rectal prolapse repair Patient has had 2-3 loose stools daily, abdomen is still bloated but soft minimal tenderness positive bowel sounds 10/28/2023 patient is awake alert oriented 3 vital signs are stable limited stool positive bowel sounds surgery evaluated advance diet as tolerated Objective - Vital Signs Vital signs: Vital Signs Temp 98.7 F 10/28/23 08:00 Pulse 80 10/28/23 08:00 Resp 16 10/28/23 08:00 BP 152/76 10/28/23 08:00 Pulse Ox 95 10/28/23 08:00 FiO2 Intake & Output 10/27/23 10/28/23 10/28/23 18:59 06:59 18:59 Intake Total 540 Balance 540 Intake: Oral 540 Other: Voiding Method Toilet Toilet Toilet # Voids 3 3 - Exam General: [Patient awake, alert and oriented times 3. Patient in no acute dis tress.] HEENT: [PERRL. EOMI. No pharyngeal erythema or exudate.] Neck: [No adenopathy.] Cardiac: [Heart regular in rate and rhythm. No S3. No S4. No clicks, rubs. No murmur.] Lungs: [Clear to auscultation bilaterally.] Abdomen: [No mass. No organomegaly. Bowel sounds presnt and normoactive in all 4 quadrants. midline incision clean and dry Extremes: [No edema no cyanosis no claudication normal pulses] : normal female genitalia Musculoskeletal: [No joint erythema, edema or tenderness.] Skin: [No rash.] Neurologic: [No lateralizing deficits. CN II - XII grossly intact.] Lymphatic: [No adenopathy.] - Labs CBC & Chem 7: 10/27/23 05:43 10/28/23 03:14 Labs: Abnormal Lab Results - Last 24 Hours (Table) 10/28/23 Range/Units 03:14 Potassium 3.4 L (3.5-5.5) mmol/L Microbiology - Last 24 Hours (Table) 10/25/23 18:00 Urine Culture - Final Urine,Voided Escherichia coli Assessment and Plan (1) Diverticulosis Current Visit: Yes Status: Acute Code(s): K57.90 - DVRTCLOS OF INTEST, PART UNSP, W/O PERF OR ABSCESS W/O BLEED SNOMED Code(s): 958561980 (2) Rectal prolapse Current Visit: Yes Status: Acute Code(s): K62.3 - RECTAL PROLAPSE SNOMED Code(s): 94375763 (3) S/P colon resection Current Visit: Yes Status: Acute Code(s): Z90.49 - ACQUIRED ABSENCE OF OTHER SPECIFIED PARTS OF DIGESTIVE TRACT SNOMED Code(s): 082025333 (4) Dehydration Current Visit: No Status: Acute Code(s): E86.0 - DEHYDRATION SNOMED Code(s): 06344462
[2023-10-28] MEDS: KETOROLAC 15 MG/ML 1 ML VIAL IVP PRN (20:15)
[2023-10-28] MEDS ORDERED: Potassium Replacement Protocol 1 EACH MISC MISCELLANE PRN (21:30)
[2023-10-29 09:11] LABS: Magnesium 1.9 mg/dL (1.5-2.4)
[2023-10-29 11:14] LABS: Basophils % (A) 0 %; Eosinophils # (A) 0.1 k/uL (0-0.7); Eosinophils % (A) 2 %; HCT 32.1 % (34.0-46.0); HGB 10.6 gm/dL (11.4-16.0); Lymphocytes # (A) 0.7 k/uL (1.0-4.8); Lymphocytes % (A) 13 %; MCH 32.2 pg (25.0-35.0); MCHC 33.1 g/dL (31.0-37.0); MCV 97.3 fL (80.0-100.0); Mean Platelet Volume 7.6; Monocytes # (A) 0.3 k/uL (0-1.0); Monocytes % (A) 6 %; Neutrophils # (A) 4.4 k/uL (1.3-7.7); Neutrophils % (A) 78 %; Platelet Count 355 k/uL (150-450); RDW 12.1 % (11.5-15.5); WBC 5.6 k/uL (3.8-10.6)
[2023-10-29] MEDS: IOPAMIDOL CONTRAST (ORAL USE) VIAL PO PRN (11:21)
--- NOTE | 2023-10-29 13:58 | P.PN ---
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 Nursing staff reports patient had her dog in the room this morning, jumping on her and pulled out IV. Patient has lost 3 IV sites, initially refusing for new IV access and midline catheter has been ordered per general surgery. Staff reporting patient was pulling at prevana wound VAC. Tmax 100.7, raspy throat. Upon returning back from chest x-ray, staff reports patient moving her arms all over,epidural pulled out. Pain management with Dilaudid IV push as per general surgery. Pain currently controlled. Mild tachycardia, IV fluids initiated. WBC 8.4, hemoglobin 12.3, platelets 266. Potassium 4. Denies chest pain, palpitations or shortness of breath. Maintaining O2 sats in the high 90s on room air. 10/24/2023 CIWA score 5 earlier this morning, currently 11, maintained on CIWA protocol. Pain controlled. Potassium ,magnesium supplemented. Occasional cough, nonproductive .chest x-ray reporting persistent left basilar acute infiltrate and or atelectasis .denies chest pain, palpitations or shortness of breath.Maintaining O2 sats in the 90s on room air. Pain currently controlled. Tmax 100.2. Normal WBC. Hemoglobin decreased, 10.1, platelets 187. Bicarb 23, BUN 11, creatinine 0.9. Patient reports she was up to the chair earlier today but it is too soon for her to walk. PT/OT consulted. 10/29/2023 nausea and vomiting this morning,now NPO. CT of abdomen and pelvis ordered .urine culture reporting E. coli, ESBL .CIWA score this morning 5, on CIWA protocol. Afebrile, normal WBC. Hemoglobin 10.6, platelets 355. Potassium 4, magnesium 1.9. Denies chest pain, palpitations or shortness of breath. Maintaining O2 sats in the high 90s on room air. Objective - Vital Signs Vital signs: Vital Signs Temp 97.8 F 10/29/23 07:45 Pulse 83 10/29/23 07:45 Resp 18 10/29/23 07:45 BP 146/85 10/29/23 07:45 Pulse Ox 99 10/29/23 07:45 FiO2 Intake & Output 10/28/23 10/29/23 10/29/23 18:59 06:59 18:59 Intake Total 540 Output Total 400 Balance 540 -400 Weight 76.2 kg Intake: Oral 540 Output: Emesis 400 Other: Voiding Method Toilet Toilet # Voids 3 2 - Exam VITAL SIGNS: [As above] GENERAL:alert and oriented x 3, no acute distress. HEENT: Normocephalic, conjunctivae normal. eyes normal. MMM. NECK: Supple, no JVD. CARDIOVASCULAR: S1, S2 regular. No murmur RESPIRATION: Unlabored, equal air entry, breath sounds diminished in the bases. ABDOMEN: Soft, status post surgery, prevana wound VAC/dressing present, binder present. LEGS: No edema. no swelling , wearing SCDs NERVOUS SYSTEM: Cranial N 2-12 grossly normal. No focal deficits. Strength and sensation grossly intact. Skin: Warm and dry, no rash - Labs CBC & Chem 7: 10/29/23 02:41 10/29/23 02:41 Labs: Abnormal Lab Results - Last 24 Hours (Table) 10/28/23 10/29/23 Range/Units 14:32 02:41 RBC 3.30 L (3.80-5.40) m/uL Hgb 10.6 L (11.4-16.0) gm/dL Hct 32.1 L (34.0-46.0) % Lymphocytes # 0.7 L (1.0-4.8) k/uL Potassium 3.4 L (3.5-5.1) mmol/L Microbiology - Last 24 Hours (Table) 10/25/23 13:11 Gram Stain - Final Sputum Sputum Culture - Final Assessment and Plan Assessment: Diverticulitis and rectal prolapse, status post lower anterior resection Acute UTI with ESBL DTs, in a patient with alcohol abuse, drinks 1-1/2 bottles of wine daily Daily consumption of marijuana Gummies Obesity, BMI 28 History of PONV Bipolar Gastroesophageal reflux disease Fibromyalgia Hypertension Sleep apnea, does not wear CPAP History of Lyme disease Former nicotine dependence Hypomagnesemia Hypokalemia Plan: Continue on current medication regimen ,monitoring and symptomatic treatment. IV antibiotics adjusted, to ertapenem. Infectious disease consulted. CT of abdomen pelvis completed, results pending. Continue on CIWA protocol. IV fluid hydration. Pain management as per general surgery.Aggressive pulmonary toileting with incentive spirometer reinforced. PT/OT. Prognosis guarded given multiple complex medical issues. The impression and plan of care has been dictated as directed. : I performed a history and examination of this patient, discussed the same with the dictator. I agree with the dictator's note ,documented as a scribe. Any additional findings or plans will be noted.
--- NOTE | 2023-10-29 14:15 | P.PN ---
Subjective Progress Note Date: 10/29/23 CHIEF COMPLAINT: Diverticulitis and rectal prolapse HISTORY OF PRESENT ILLNESS: Patient postop day #7 status post lower anterior resection. Patient had vomiting last night. Patient reports having vomiting after taking the potassium last night. She is complains of acid reflux symptoms and continued nausea this morning. She did have a small bowel movement and flatus. Her pain is controlled. Afebrile. WBC 5.6 Hgb 10.6 PHYSICAL EXAM: VITAL SIGNS: Reviewed. GENERAL: Well-developed in no acute distress. ABDOMEN: Soft. distended. Diffuse tenderness. Prevana wound VAC intact with some shadowing NEUROLOGIC: Alert and oriented. Cranial nerves II through XII grossly intact. ASSESSMENT: 1. Diverticulitis and rectal prolapse 2. Daily EtOH use 3. Postoperative ileus can be an expected complication after surgery 4. UTI with ESBL PLAN: -CT scan abdomen pelvis with oral and IV contrast ordered for patient's abdominal pain and vomiting -Keep patient n.p.o. -Encourage patient to ambulate -Encourage patient to use incentive spirometer -Antibiotics adjusted per medicine service with consult to infectious disease for UTI with ESBL -DVT prophylaxis subcu heparin and GI prophylaxis Protonix Physician Medical Office Specialist note has been reviewed by physician. Signing provider agrees with the documented findings, assessment, and plan of care. Objective - Vital Signs Vital signs: Vital Signs Temp 97.8 F 10/29/23 07:45 Pulse 83 10/29/23 07:45 Resp 18 10/29/23 07:45 BP 146/85 10/29/23 07:45 Pulse Ox 99 10/29/23 07:45 FiO2 Intake & Output 10/28/23 10/29/23 10/29/23 18:59 06:59 18:59 Intake Total 540 Output Total 400 Balance 540 -400 Weight 76.2 kg Intake: Oral 540 Output: Emesis 400 Other: Voiding Method Toilet Toilet # Voids 3 2 - Labs CBC & Chem 7: 10/29/23 02:41 10/29/23 02:41 Labs: Abnormal Lab Results - Last 24 Hours (Table) 10/28/23 10/29/23 Range/Units 14:32 02:41 RBC 3.30 L (3.80-5.40) m/uL Hgb 10.6 L (11.4-16.0) gm/dL Hct 32.1 L (34.0-46.0) % Lymphocytes # 0.7 L (1.0-4.8) k/uL Potassium 3.4 L (3.5-5.1) mmol/L
[2023-10-29] MEDS: ERTAPENEM 1 GM in SODIUM CHLORIDE 0.9% 50 ML IVPB SCH (14:23)
--- NOTE | 2023-10-29 14:33 | CT ---
EXAMINATION TYPE: CT abdomen pelvis w con CT DLP: 1341 mGycm, Automated exposure control for dose reduction was used. DATE OF EXAM: 10/29/2023 1:13 PM COMPARISON: CT abdomen 08/18/2022 CLINICAL INDICATION:Female, 68 years old with history of abdominal pain, vomiting; abd pain, vomiting TECHNIQUE: Axial CT abdomen pelvis w con;Sagittal and coronal reformats were created on a separate w orkstation. Contrast used:100 mL of Isovue 300 with IV Contrast, (none if empty) Oral contrast used: with Oral Contrast (none if empty) FINDINGS: LOWER CHEST: Unremarkable ABDOMEN LIVER: Unremarkable GALLBLADDER AND BILE DUCTS: Surgical clips are seen in the gallbladder fossa. Pacemaker is present in the gallbladder fossa. PANCREAS: Unremarkable. SPLEEN: Unremarkable. ADRENAL GLANDS: Unremarkable. KIDNEYS AND URETERS: No evidence of hydronephrosis or renal calculus. The ureters are unremarkable. PELVIS BLADDER: Unremarkable REPRODUCTIVE: Unremarkable. ABDOMEN & PELVIS STOMACH AND BOWEL: Obstructive bowel gas pattern. Dilated small bowel loops are partially fluid-fille d and have enhancing torrez. PERITONEUM/RETROPERITONEUM: Mild to moderate free fluid seen around the spleen, liver, right. VASCULATURE: No evidence of aortic aneurysm. MUSCULOSKELETAL: No acute osseous abnormalities LYMPH NODES: No gross evidence for lymphadenopathy. SOFT TISSUE/ABDOMINAL WALL: Unremarkable IMPRESSION: 1. Free fluid. No free air. Obstructed pattern of small bowel
[2023-10-29] MEDS: SODIUM CHLORIDE 0.9% 1,000 ML IV SCH (17:33)
--- NOTE | 2023-10-29 22:41 | P.CONS ---
History of Present Illness - Reason for Consult Consult date: 10/29/23 ESBL E. coli UTI Requesting physician: Natalie Burns - Chief Complaint Abdominal pain x few days - History of Present Illness Patient is a 68-year-old female with a past medical history significant for hypertension reflux fibromyalgia history of diverticulitis in this patient who electively admitted to the hospital on 10/22/2023 after the patient did have low anterior resection for diverticulosis and rectal prolapse patient subsequently has been in the hospital for postop care patient did have a Kovacs catheter placement at least for 2 days postsurgery and was subsequently discontinued patient seem to be dealing with ileus and has been under care of primary and surgical team patient did have a low-grade fever 100.2 F on 10/24/2023 but no fever since then patient did have a normal white count creatinine has been normal urine was mildly positive on 10/26/2023 with a culture positive for ESBL E. coli antibiotic was switched over to Invanz infectious dis ease was consulted for further management of antibiotic therapy, patient currently denies having any fever or any chills patient denies having any headache or URI symptoms no chest pain shortness of breath or cough patient complaining of mostly abdominal distention and apparently did not have signif icant BM patient also noticed a slight nausea but no vomiting, patient complaining of some urinary symptoms of frequency but no significant burning suprapubic did mention some back pain but not specifically flank pain Review of Systems Positive point and negatives has been mentioned in the HPI, complete review of systems was performed and all other systems are negative Past Medical History Past Medical History: Fibromyalgia, GERD/Reflux, Hypertension, Osteoarthritis (OA), Sleep Apnea/CPAP/BIPAP Additional Past Medical History / Comment(s): Lyme Disease, kidney stones, neuropathy in feet, NO CPAP, hx diverticulosis and colon polyps. History of Any Multi-Drug Resistant Organisms: None Reported Past Surgical History: Cholecystectomy, Hysterectomy, Orthopedic Surgery, Tonsillectomy Additional Past Surgical History / Comment(s): Right foot surgery, bilateral partial knee, right rotator cuff repair, nose surgery, colonoscopy. Past Anesthesia/Blood Transfusion Reactions: Previous Problems w/ Anesthesia, Postoperative Nausea & Vomiting (PONV) Additional Past Anesthesia/Blood Transfusion Reaction / Comm: Elevated BP w/anesthesia in the past per pt; two sisters hx. elevated BP w/ anesthesia; one sister with PONV; mother had a hard time coming out of anesthesia. Smoking Status: Former smoker - Past Family History Mother Family Medical History: Hypertension, Thyroid Disorder Sister(s) Family Medical History: Hypertension, Thyroid Disorder Additional Family Medical History / Comment(s): Crohns. Father Family Medical History: Cancer Medications and Allergies Home Medications Medication Instructions Recorded Confirmed Type QUEtiapine [SEROquel] 50 mg PO HS 01/09/15 10/15/23 History Multivitamins, Thera [Multivitamin 1 tab PO DAILY 09/13/20 10/15/23 History (formulary)] Albuterol Inhaler [Ventolin Hfa 1 - 2 puff INHALATION Q6H PRN 09/14/23 10/15/23 History Inhaler] Losartan [Cozaar] 25 mg PO HS 09/14/23 10/15/23 History amLODIPine [Norvasc] 5 mg PO DAILY 09/14/23 10/15/23 History hydroCHLOROthiazide 12.5 mg PO DAILY 09/14/23 10/15/23 History Fish Oil (Unknown Dose) 1 tab PO DAILY 10/15/23 10/15/23 History L.acidoph,Paracasei, B.lactis 1 tab PO DAILY 10/15/23 10/15/23 History [Probiotic] Vitamin D3 (Unknown Dose) 1 tab PO DAILY 10/15/23 10/15/23 History Allergies Allergy/AdvReac Type Severity Reaction Status Date / Time Anesthetics - Amide Type - Allergy Nausea Verified 10/22/23 06:23 Select A [Anesthetics - Amide Type] meperidine HCl [From Demerol] AdvReac Nausea & Verified 10/22/23 06:23 Vomiting morphine AdvReac Nausea & Verified 10/22/23 06:23 Vomiting Physical Exam Vitals: Vital Signs Temp Pulse Resp BP BP Pulse Ox 10/29/23 13:20 98 F 56 L 20 152/86 99 10/29/23 07:45 97.8 F 83 18 146/85 99 10/29/23 01:07 98.8 F 83 17 124/78 95 10/28/23 19:11 98.8 F 91 17 152/71 97 Intake and Output 10/29/23 10/29/23 10/29/23 06:59 14:59 22:59 Intake Total 240 Output Total 400 Balance -400 240 Intake: Oral 240 Output: Emesis 400 Other: # Voids 2 2 Weight 76.2 kg GENERAL DESCRIPTION: Elderly female e lying in bed, no distress. No tachypnea or accessory muscle of respiration use. HEENT: Shows Pallor , no scleral icterus. Oral mucous membrane is dry. No pharyngeal erythema or thrush NECK: Trachea central, no thyromegaly. LUNGS: Unlabored breathing. Decreased breath sound the base. No wheeze or crackle. HEART: S1, S2, regular rate and rhythm. No loud murmur ABDOMEN: Soft, mild distention but no significant tenderness EXTREMITIES: No edema of feet. SKIN: No rash, no masses palpable. NEUROLOGICAL: The patient is awake, alert, oriented x3, mood and affect normal. Results CBC & Chem 7: 10/29/23 02:41 10/29/23 02:41 Labs: Abnormal Lab Results - Last 24 Hours (Table) 10/29/23 Range/Units 02:41 RBC 3.30 L (3.80-5.40) m/uL Hgb 10.6 L (11.4-16.0) gm/dL Hct 32.1 L (34.0-46.0) % Lymphocytes # 0.7 L (1.0-4.8) k/uL Microbiology - Last 24 Hours (Table) 10/25/23 13:11 Gram Stain - Final Sputum Sputum Culture - Final Assessment and Plan (1) Infection due to ESBL-producing Escherichia coli Current Visit: Yes Status: Acute Code(s): A49.8 - OTHER BACTERIAL INFECTIONS OF UNSPECIFIED SITE; Z16.12 - EXTENDED SPECTRUM BETA LACTAMASE (ESBL) RESISTANCE SNOMED Code(s): 435318838 (2) Urinary tract infection Current Visit: No Status: Acute Code(s): N39.0 - URINARY TRACT INFECTION, SITE NOT SPECIFIED SNOMED Code(s): 00271417 Plan: 1patient with a positive urine culture with ESBL E. coli in this patient admitted to the hospital for low anterior resection did have a Kovacs catheter placement for 2 days after surgery now with some urinary frequency and flank pain concerning for possible symptomatic urinary tract infection 2-Invanz 1 g daily to continue 3-repeat UA and culture Question concern answered We will follow on clinical condition and cultures to further adjust medication if needed Thank you for this consultation we will follow the patient along with you Dictation was produced using [employer] software. please excuse any gr ammatical, word or spelling errors. Time with Patient: Greater than 30
[2023-10-30 08:35] LABS: Basophils # (A) 0.03 X 10*3/uL (0.00-0.10); Basophils % (A) 0.4 %; Eosinophils # (A) 0.12 X 10*3/uL (0.04-0.35); Eosinophils % (A) 1.8 %; HCT 28.3 % (37.2-46.3); HGB 9.5 g/dL (12.0-15.0); Lymphocytes # (A) 1.21 X 10*3/uL (0.90-5.00); Lymphocytes % (A) 17.8 %; MCH 31.6 pg (27.0-32.0); MCHC 33.6 g/dL (32.0-37.0); Mean Platelet Volume 8.7 FL (9.5-12.2); Monocytes # (A) 0.54 X 10*3/uL (0.20-1.00); NRBC Per 100 WBC 0 X 10*3/uL (0.00-0.01); Neutrophils # (A) 4.83 X 10*3/uL (1.80-7.70); Neutrophils % (A) 71.3 %; Platelet Count 301 X 10*3/uL (140-440); RBC 3.01 X 10*6/uL (4.10-5.20); RDW 12.2 % (11.5-14.5); WBC 6.78 X 10*3/uL (4.50-10.00)
[2023-10-30 08:47] LABS: BUN/Creat Ratio 9.56 Ratio (12.00-20.00); Blood Urea Nitrogen 8.6 mg/dL (9.0-27.0); Calcium 7.9 mg/dL (8.7-10.3); Carbon Dioxide 21.7 mmol/L (21.6-31.8); Chloride 105 mmol/L (96-109); Glucose 93 mg/dL (70-110); Potassium 3.5 mmol/L (3.5-5.5); Sodium 136 mmol/L (135-145)
--- NOTE | 2023-10-30 10:53 | P.PN ---
Subjective Progress Note Date: 10/30/23 CHIEF COMPLAINT: Diverticulitis and rectal prolapse HISTORY OF PRESENT ILLNESS: Patient postop day #8 status post lower anterior resection. Patient reports she is feeling better today. She has had no further nausea or vomiting. She had large bowel movements during the night. She has been up and ambulating. She is requesting advancement of her diet. Afebrile. WBC 6.[address] scan abdomen pelvis reported free fluid. No free air. Obstructive pattern of small bowel. CT results reviewed with Dr. Atkinson. Clayton likely this is related to an ileus. PHYSICAL EXAM: VITAL SIGNS: Reviewed. GENERAL: Well-developed in no acute distress. ABDOMEN: Soft. mildly distended. minimal tenderness. Prevana wound VAC intact with some shadowing NEUROLOGIC: Alert and oriented. Cranial nerves II through XII grossly intact. ASSESSMENT: 1. Diverticulitis and rectal prolapse 2. Daily EtOH use 3. Postoperative ileus can be an expected complication after surgery 4. UTI with ESBL Ecoli PLAN: -Advance diet to full liquids -Remove Prevana out wound VAC. Cover incision with ABD. Patient can shower. -Encourage patient to ambulate -Encourage patient to use incentive spirometer -Antibiotics per ID service -DVT prophylaxis subcu heparin and GI prophylaxis Protonix Physician General Manager [employer] note has been reviewed by physician. Signing provider agrees with the documented findings, assessment, and plan of care. Objective - Vital Signs Vital signs: Vital Signs Temp 99.2 F 10/30/23 07:44 Pulse 93 10/30/23 07:44 Resp 17 10/30/23 07:44 BP 136/81 10/30/23 07:44 Pulse Ox 94 L 10/30/23 07:44 FiO2 Intake & Output 10/29/23 10/30/23 10/30/23 18:59 06:59 18:59 Intake Total 240 1740 Balance 240 1740 Weight 76.2 kg Intake: Intake, IV Titration 1500 Amount Sodium Chloride 0.9% 1, 1500 000 ml @ 125 mls/hr IV . Q8H [facility] Rx#:[id number] Oral 240 240 Other: Voiding Method Toilet # Voids 2 2 # Bowel Movements 1 - Labs CBC & Chem 7: 10/30/23 04:25 10/30/23 04:25 Labs: Abnormal Lab Results - Last 24 Hours (Table) 10/29/23 10/30/23 10/30/23 Range/Units 02:41 04:25 04:25 RBC 3.30 L 3.01 L (3.80-5.40) m/uL Hgb 10.6 L 9.5 L (11.4-16.0) gm/dL Hct 32.1 L 28.3 L (34.0-46.0) % MPV 8.7 L (9.5-12.2) FL Immature Gran # 0.05 H (0.00-0.04) X 10*3/uL Lymphocytes # 0.7 L (1.0-4.8) k/uL BUN 8.6 L (9.0-27.0) mg/dL BUN/Creatinine Ratio 9.56 L (12.00-20.00) Ratio Calcium 7.9 L (8.7-10.3) mg/dL Microbiology - Last 24 Hours (Table) 10/25/23 13:11 Gram Stain - Final Sputum Sputum Culture - Final
[2023-10-30] MEDS: POTASSIUM CHLORIDE ER 20 MEQ TAB.ER PO STA (13:16)
[2023-10-30 13:34] LABS: Appearance,Urine Clear (Clear); Bilirubin,Urine Negative (Negative); Blood,Urine Negative (Negative); Color,Urine Colorless; Glucose,Urine (UA) Negative (Negative); Ketones,Urine 1+ (Negative); Leukocyte Esterase,Urine Negative (Negative); Nitrite,Urine Negative (Negative); PH, Urine 5.5 (5.0-8.0); Protein,Urine Negative (Negative)
--- NOTE | 2023-10-30 14:36 | P.PN ---
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 Nursing staff reports patient had her dog in the room this morning, jumping on her and pulled out IV. Patient has lost 3 IV sites, initially refusing for new IV access and midline catheter has been ordered per general surgery. Staff reporting patient was pulling at prevana wound VAC. Tmax 100.7, raspy throat. Upon returning back from chest x-ray, staff reports patient moving her arms all over,epidural pulled out. Pain management with Dilaudid IV push as per general surgery. Pain currently controlled. Mild tachycardia, IV fluids initiated. WBC 8.4, hemoglobin 12.3, platelets 266. Potassium 4. Denies chest pain, palpitations or shortness of breath. Maintaining O2 sats in the high 90s on room air. 10/24/2023 CIWA score 5 earlier this morning, currently 11, maintained on CIWA protocol. Pain controlled. Potassium ,magnesium supplemented. Occasional cough, nonproductive .chest x-ray reporting persistent left basilar acute infiltrate and or atelectasis .denies chest pain, palpitations or shortness of breath.Maintaining O2 sats in the 90s on room air. Pain currently controlled. Tmax 100.2. Normal WBC. Hemoglobin decreased, 10.1, platelets 187. Bicarb 23, BUN 11, creatinine 0.9. Patient reports she was up to the chair earlier today but it is too soon for her to walk. PT/OT consulted. 10/29/2023 nausea and vomiting this morning,now NPO. CT of abdomen and pelvis ordered .urine culture reporting E. coli, ESBL .CIWA score this morning 5, on CIWA protocol. Afebrile, normal WBC. Hemoglobin 10.6, platelets 355. Potassium 4, magnesium 1.9. Denies chest pain, palpitations or shortness of breath. Maintaining O2 sats in the high 90s on room air. 10/30/2023 maintained on ertapenem as per ID with repeat UA with culture ordered. CT of abdomen and pelvis reported free fluid, no free air, obstructive pattern of small bowel-ileus as per general surgery's review. Nausea and vomiting resolved, positive bowel movement during the night. CIWA score 0. Prevana wound VAC discontinued. Afebrile, normal WBC. Objective - Vital Signs Vital signs: Vital Signs Temp 99.2 F 10/30/23 07:44 Pulse 93 10/30/23 07:44 Resp 17 10/30/23 07:44 BP 136/81 10/30/23 07:44 Pulse Ox 94 L 10/30/23 07:44 FiO2 Intake & Output 10/29/23 10/30/23 10/30/23 18:59 06:59 18:59 Intake Total 240 1740 Balance 240 1740 Weight 76.2 kg Intake: Intake, IV Titration 1500 Amount Sodium Chloride 0.9% 1, 1500 000 ml @ 125 mls/hr IV . Q8H [facility] Rx#:[id number] Oral 240 240 Other: Voiding Method Toilet # Voids 2 2 # Bowel Movements 1 - Exam VITAL SIGNS: [As above] GENERAL:alert and oriented x 3, laying in bed, no acute distress. HEENT: Normocephalic, conjunctivae normal. eyes normal. MMM. NECK: Supple, no JVD. CARDIOVASCULAR: S1, S2 regular. No murmur RESPIRATION: Unlabored, equal air entry, breath sounds diminished in the bases. ABDOMEN: Soft, status post surgery, diffuse tenderness, ,dressing clean dry and intact, binder present. LEGS: No edema. no swelling , wearing SCDs NERVOUS SYSTEM: Cranial N 2-12 grossly normal. No focal deficits. Strength and sensation grossly intact. Skin: Warm and dry, no rash - Labs CBC & Chem 7: 10/30/23 04:25 10/30/23 04:25 Labs: Abnormal Lab Results - Last 24 Hours (Table) 10/30/23 10/30/23 Range/Units 04:25 04:25 RBC 3.01 L (4.10-5.20) X 10*6/uL Hgb 9.5 L (12.0-15.0) g/dL Hct 28.3 L (37.2-46.3) % MPV 8.7 L (9.5-12.2) FL Immature Gran # 0.05 H (0.00-0.04) X 10*3/uL BUN 8.6 L (9.0-27.0) mg/dL BUN/Creatinine Ratio 9.56 L (12.00-20.00) Ratio Calcium 7.9 L (8.7-10.3) mg/dL Microbiology - Last 24 Hours (Table) 10/25/23 13:11 Gram Stain - Final Sputum Sputum Culture - Final Assessment and Plan Assessment: Diverticulitis and rectal prolapse, status post lower anterior resection Acute UTI with ESBL Postoperative ileus DTs, in a patient with alcohol abuse, drinks 1-1/2 bottles of wine daily Daily consumption of marijuana Gummies Obesity, BMI 28 History of PONV Bipolar Gastroesophageal reflux disease Fibromyalgia Hypertension Sleep apnea, does not wear CPAP History of Lyme disease Former nicotine dependence Hypomagnesemia Hypokalemia Plan: Continue on current medication regimen ,monitoring and symptomatic treatment. IV antibiotics as per ID with repeat UA with culture in progress.diet advancement as per general surgery. IV fluid hydration. Pain management.maintain aggressive pulmonary toileting with incentive spirometer reinforced. Increase ambulation as tolerated. PT/OT prognosis guarded given multiple complex medical issues. The impression and plan of care has been dictated as directed. : I performed a history and examination of this patient, discussed the same with the dictator. I agree with the dictator's note ,documented as a scribe. Any additional findings or plans will be noted.
[2023-10-31 07:39] VITALS: TEMP 99.3
[2023-10-31 08:31] LABS: HCT 27.4 % (37.2-46.3); HGB 9.4 g/dL (12.0-15.0); MCH 32.3 pg (27.0-32.0); MCHC 34.3 g/dL (32.0-37.0); MCV 94.2 FL (80.0-97.0); Mean Platelet Volume 8.8 FL (9.5-12.2); NRBC Per 100 WBC 0 X 10*3/uL (0.00-0.01); Platelet Count 333 X 10*3/uL (140-440); RBC 2.91 X 10*6/uL (4.10-5.20); RDW 12.1 % (11.5-14.5); WBC 7.85 X 10*3/uL (4.50-10.00)
[2023-10-31 08:57] LABS: BUN/Creat Ratio 6.57 Ratio (12.00-20.00); Blood Urea Nitrogen 4.6 mg/dL (9.0-27.0); Calcium 7.9 mg/dL (8.7-10.3); Carbon Dioxide 23.4 mmol/L (21.6-31.8); Chloride 105 mmol/L (96-109); Glucose 107 mg/dL (70-110); Potassium 3.3 mmol/L (3.5-5.5); Sodium 138 mmol/L (135-145)
[2023-10-31] MEDS ORDERED: POTASSIUM CHLORIDE 10 MEQ in WATER FOR INJECTION 1 100ML.BAG IVPB SCH (10:00)
[2023-10-31] MEDS: POTASSIUM CHLORIDE ER 20 MEQ TAB.ER PO SCH (10:46)
[2023-10-31] MEDS: POTASSIUM CHLORIDE 20 MEQ in WATER FOR INJECTION 1 100ML.BAG IVPB STA (11:06)
--- NOTE | 2023-10-31 12:32 | P.DS ---
Providers Date of admission: 10/22/23 05:34 Expected date of discharge: 10/31/23 Attending physician: Torin Atkinson Consults: 10/22/23 10:00 Consult Physician Routine Consulting Provider: Misha Escobar Jr Consult Reason/Comments: Medical management Do you want consulting provider notified?: Yes 10/29/23 13:12 Consult Physician Routine Consulting Provider: Dot Varghese Consult Reason/Comments: UTi, ESBl Do you want consulting provider notified?: Yes Primary care physician: Misha Escobar Hospital Course: Discharge diagnosis 1. Diverticulitis and rectal prolapse 2. Daily EtOH use 3. Postoperative ileus can be an expected complication after surgery 4. UTI with ESBL Ecoli 5. Hypokalemia. Patient refused oral potassium supplement. Willing to eat bananas. Hospital course This is a 68-year-old female with a known history of diverticulitis and a rectal prolapse. She is status post lower anterior resection. Patient did have a postoperative ileus after surgery. She also was found to have evidence of UTI. Antibiotics managed per infectious disease. Infectious ease reporting no further antibiotics are needed. Patient is tolerating diet. She is having bowel movements. Her pain is controlled. She is afebrile. She is stable for discharge. Please refer to chart for any further details. Physician Waste Elimination note has been reviewed by physician. Signing provider agrees with the documented findings, assessment, and plan of care. Patient Condition at Discharge: Stable Plan - Discharge Summary Discharge Rx Participant: No New Discharge Prescriptions: New Folic Acid 1 mg PO DAILY tab Thiamine [Vitamin B-1] 100 mg PO DAILY tab Acetaminophen Tab [Tylenol Tab] 650 mg PO Q4H PRN #30 tablet PRN Reason: Pain Ibuprofen [Motrin] 600 mg PO Q8HR PRN #30 tab PRN Reason: Pain Continue QUEtiapine [SEROquel] 50 mg PO HS Multivitamins, Thera [Multivitamin (formulary)] 1 tab PO DAILY Losartan [Cozaar] 25 mg PO HS L.acidoph,Paracasei, B.lactis [Probiotic] 1 tab PO DAILY Albuterol Inhaler [Ventolin Hfa Inhaler] 1 - 2 puff INHALATION Q6H PRN PRN Reason: Shortness Of Breath hydroCHLOROthiazide 12.5 mg PO DAILY amLODIPine [Norvasc] 5 mg PO DAILY Vitamin D3 (Unknown Dose) 1 tab PO DAILY Fish Oil (Unknown Dose) 1 tab PO DAILY Discharge Medication List QUEtiapine [SEROquel] 50 mg PO HS 01/09/15 [History] Multivitamins, Thera [Multivitamin (formulary)] 1 tab PO DAILY 09/13/20 [History] Albuterol Inhaler [Ventolin Hfa Inhaler] 1 - 2 puff INHALATION Q6H PRN 09/14/23 [History] Losartan [Cozaar] 25 mg PO HS 09/14/23 [History] amLODIPine [Norvasc] 5 mg PO DAILY 09/14/23 [History] hydroCHLOROthiazide 12.5 mg PO DAILY 09/14/23 [History] Fish Oil (Unknown Dose) 1 tab PO DAILY 10/15/23 [History] L.acidoph,Paracasei, B.lactis [Probiotic] 1 tab PO DAILY 10/15/23 [History] Vitamin D3 (Unknown Dose) 1 tab PO DAILY 10/15/23 [History] Acetaminophen Tab [Tylenol Tab] 650 mg PO Q4H PRN #30 tablet 10/31/23 [Rx] Folic Acid 1 mg PO DAILY tab 10/31/23 [Rx] Ibuprofen [Motrin] 600 mg PO Q8HR PRN #30 tab 10/31/23 [Rx] Thiamine [Vitamin B-1] 100 mg PO DAILY tab 10/31/23 [Rx] Follow up Appointment(s)/Referral(s): [facility], [NON-STAFF] - As Needed Misha Escobar Jr, DO [Primary Care Provider] - 11/02/23 11:00 am Torin Atkinson MD [STAFF PHYSICIAN] - 11/08/23 2:20 pm Patient Instructions/Handouts: Acetaminophen (By mouth), Ibuprofen (By mouth), Diverticulitis (DC), Extended Spectrum Beta Lactamase (GEN), Rectal Prolapse (DC), Acute Wounds (DC), Bowel Resection (DC) Activity/Diet/Wound Care/Special Instructions: EtOH cessation No lifting over 10 pounds Shower daily. No soaking or tub baths for 2 weeks Very light activity until you are reevaluated at your follow up appointment with your surgeon Discharge/Stand Alone Forms: AA Meetings [facility], AA Meetings [place], Who Do I Call?, Community Resources, Outpatient Counseling, Inp Substance Abuse Facilities Discharge Disposition: HOME SELF-CARE
--- NOTE | 2023-10-31 12:35 | P.PN ---
Subjective Progress Note Date: 10/30/23 Principal diagnosis: Reason for follow-up is ESBL E. coli urinary tract infection Patient is a 68-year-old female with a past medical history significant for hypertension reflux fibromyalgia history of diverticulitis in this patient who electively admitted to the hospital on 10/22/2023 after the patient did have low anterior resection for diverticulosis and rectal prolapse patient subsequently has been in the hospital for postop care patient has developed postop ileus and also UTI with urine culture positive for ESBL E. coli prompted this consultation. On today's evaluation that is 10/30/2023, the patient continues to be afebrile, the patient is on room air and breathing comfortably, the Pt denies having any chest pain or cough, the patient abdominal pain and distention has decreased in intensity denies any nausea vomiting did have a bowel movement improvement in the urinary symptoms. Patient white count 6.78, creatinine 0.9 Objective - Vital Signs Vital signs: Vital Signs Temp 99.2 F 10/30/23 07:44 Pulse 93 10/30/23 07:44 Resp 17 10/30/23 07:44 BP 136/81 10/30/23 07:44 Pulse Ox 94 L 10/30/23 07:44 FiO2 Intake & Output 10/29/23 10/30/23 10/30/23 18:59 06:59 18:59 Intake Total 240 1740 Balance 240 1740 Weight 76.2 kg Intake: Intake, IV Titration 1500 Amount Sodium Chloride 0.9% 1, 1500 000 ml @ 125 mls/hr IV . Q8H [facility] Rx#:[id number] Oral 240 240 Other: Voiding Method Toilet # Voids 2 2 # Bowel Movements 1 - Exam GENERAL DESCRIPTION: An elderly female lying in bed in no distress RESPIRATORY SYSTEM: Unlabored breathing , decreased breath sounds at bases HEART: S1 S2 regular rate and rhythm , ABDOMEN: Soft mild distention EXTREMITIES: No edema feet - Labs CBC & Chem 7: 10/31/23 06:07 10/31/23 06:07 Labs: Abnormal Lab Results - Last 24 Hours (Table) 10/30/23 10/30/23 Range/Units 04:25 04:25 RBC 3.01 L (4.10-5.20) X 10*6/uL Hgb 9.5 L (12.0-15.0) g/dL Hct 28.3 L (37.2-46.3) % MPV 8.7 L (9.5-12.2) FL Immature Gran # 0.05 H (0.00-0.04) X 10*3/uL BUN 8.6 L (9.0-27.0) mg/dL BUN/Creatinine Ratio 9.56 L (12.00-20.00) Ratio Calcium 7.9 L (8.7-10.3) mg/dL Microbiology - Last 24 Hours (Table) 10/25/23 13:11 Gram Stain - Final Sputum Sputum Culture - Final Assessment and Plan (1) Infection due to ESBL-producing Escherichia coli Current Visit: Yes Status: Acute Code(s): A49.8 - OTHER BACTERIAL INFECTIONS OF UNSPECIFIED SITE; Z16.12 - EXTENDED SPECTRUM BETA LACTAMASE (ESBL) RESISTANCE SNOMED Code(s): 799038174 (2) Urinary tract infection Current Visit: No Status: Acute Code(s): N39.0 - URINARY TRACT INFECTION, SITE NOT SPECIFIED SNOMED Code(s): 65917820 Plan: 1patient with a positive urine culture with ESBL E. coli in this patient admitted to the hospital for low anterior resection did have a Kovacs catheter placement for 2 days after surgery now with some urinary frequency and flank pain concerning for possible symptomatic urinary tract infection 2-currently waiting for-repeat UA and culture to finalize continue with the Invanz with the discharge antibiotic on the basis of repeat cultures Dictation was produced using [employer] dictation software. please excuse any grammatical, word or spelling errors. Time with Patient: Less than 30
[2023-10-31 12:36] VITALS: BP 135/74; PULSE 93; RESP 16
--- NOTE | 2023-10-31 13:59 | P.PN ---
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 Nursing staff reports patient had her dog in the room this morning, jumping on her and pulled out IV. Patient has lost 3 IV sites, initially refusing for new IV access and midline catheter has been ordered per general surgery. Staff reporting patient was pulling at prevana wound VAC. Tmax 100.7, raspy throat. Upon returning back from chest x-ray, staff reports patient moving her arms all over,epidural pulled out. Pain management with Dilaudid IV push as per general surgery. Pain currently controlled. Mild tachycardia, IV fluids initiated. WBC 8.4, hemoglobin 12.3, platelets 266. Potassium 4. Denies chest pain, palpitations or shortness of breath. Maintaining O2 sats in the high 90s on room air. 10/24/2023 CIWA score 5 earlier this morning, currently 11, maintained on CIWA protocol. Pain controlled. Potassium ,magnesium supplemented. Occasional cough, nonproductive .chest x-ray reporting persistent left basilar acute infiltrate and or atelectasis .denies chest pain, palpitations or shortness of breath.Maintaining O2 sats in the 90s on room air. Pain currently controlled. Tmax 100.2. Normal WBC. Hemoglobin decreased, 10.1, platelets 187. Bicarb 23, BUN 11, creatinine 0.9. Patient reports she was up to the chair earlier today but it is too soon for her to walk. PT/OT consulted. 10/29/2023 nausea and vomiting this morning,now NPO. CT of abdomen and pelvis ordered .urine culture reporting E. coli, ESBL .CIWA score this morning 5, on CIWA protocol. Afebrile, normal WBC. Hemoglobin 10.6, platelets 355. Potassium 4, magnesium 1.9. Denies chest pain, palpitations or shortness of breath. Maintaining O2 sats in the high 90s on room air. 10/30/2023 maintained on ertapenem as per ID with repeat UA with culture ordered. CT of abdomen and pelvis reported free fluid, no free air, obstructive pattern of small bowel-ileus as per general surgery's review. Nausea and vomiting resolved, positive bowel movement during the night. CIWA score 0. Prevana wound VAC discontinued. Afebrile, normal WBC. 10/31/2019 repeat UA reported negative with exception 1+ ketones. Yesterday patient's potassium 3.5, patient refused potassium supplements despite being educated on rationale. Potassium this morning continues to drop to 3.3. Potassium supplements ordered. Banana offered. Tmax 99.5, normal WBC, renal function stable. Objective - Vital Signs Vital signs: Vital Signs Temp 99.3 F 10/31/23 07:19 Pulse 104 H 10/31/23 07:19 Resp 20 10/31/23 07:19 BP 145/86 10/31/23 07:19 Pulse Ox 94 L 10/31/23 07:19 FiO2 Intake & Output 10/30/23 10/31/23 10/31/23 18:59 06:59 18:59 Intake Total 50 Balance 50 Intake: Oral 50 Other: Voiding Method Toilet # Voids 2 - Labs CBC & Chem 7: 10/31/23 06:07 10/31/23 06:07 Labs: Abnormal Lab Results - Last 24 Hours (Table) 10/30/23 10/31/23 10/31/23 Range/Units 10:00 06:07 06:07 RBC 2.91 L (4.10-5.20) X 10*6/uL Hgb 9.4 L (12.0-15.0) g/dL Hct 27.4 L (37.2-46.3) % MCH 32.3 H (27.0-32.0) pg MPV 8.8 L (9.5-12.2) FL Potassium 3.3 L (3.5-5.5) mmol/L BUN 4.6 L (9.0-27.0) mg/dL BUN/Creatinine Ratio 6.57 L (12.00-20.00) Ratio Calcium 7.9 L (8.7-10.3) mg/dL Urine Ketones 1+ H (Negative) Assessment and Plan Assessment: Diverticulitis and rectal prolapse, status post lower anterior resection Acute UTI with ESBL Postoperative ileus DTs, in a patient with alcohol abuse, drinks 1-1/2 bottles of wine daily Daily consumption of marijuana Gummies Obesity, BMI 28 History of PONV Bipolar Gastroesophageal reflux disease Fibromyalgia Hypertension Sleep apnea, does not wear CPAP History of Lyme disease Former nicotine dependence Hypomagnesemia Hypokalemia Plan: Continue on current medication regimen ,monitoring and symptomatic treatment. Potassium supplements ordered .patient declining oral potassium and requesting IV piggyback instead .aggressive pulmonary toileting with incentive spirometer reinforced. Increase ambulation. Previously during this admission patient had declined PT but states she is ambulating in hallways and denies any PT needs at this time. discharge planning in progress for today as per primary- General surgery and pending antibiotics as per ID . Follow-up with PCP in 1 week. The impression and plan of care has been dictated as directed. : I performed a history and examination of this patient, discussed the same with the dictator. I agree with the dictator's note ,documented as a scribe. Any additional findings or plans will be noted.
--- NOTE | 2023-10-31 15:50 | CDI ---
Documentation Clarification Form Date: 10/31/2023 03:20:12 PM From: Genna Garcia Phone: [phone] Admit Date: 10/22/2023 05:34:00 AM Patient Name: Regina Espinoza Visit Number: [id number] Discharge Date: ATTENTION: The Clinical Documentation Specialists (CDI) and [facility] Coding Staff appreciate your assistance in clarifying documentation. Please respond to the clarification below the line at the bottom and electronically sign. The CDI & [facility] Coding staff will review the response and follow-up if needed. Please note: Queries are made part of the Legal Health Record. If you have any questions, please contact the author of this message via ITS. Dr. Dot Varghese UTI is documented in the ID Consult on 10/29/23 and patient had a Kovacs catheter inserted on 10/22/23-10/24/23. Additional clarification regarding the etiology of the UTI is requested. History/Risk Factors: Fibromyalgia, GERD/Reflux, Hypertension, Osteoarthritis (OA), Sleep Apnea/CPAP/BIPAP, Daily consumption of marijuana Gummies Clinical Indicators: 68-year-old female with diverticulitis and rectal prolapse, present for elective low anterior resection. She had DTs, in a patient with alcohol abuse, drinks 1-1/2 bottles of wine daily. 10/24 VS: 152/80 88 17 99.5 94% RA 10/24 Urinalysis: Ur Leukocytes Esterase Negative, Urine WBC 11, Urine Bacteria Occasional 10/24 Urine culture: Escherichia coli 10/24 Lab results: WBC2.87 Neutrophils 1.7 Treatment: Invanz 1 GM Daily Zosyn 3.375 GM IVPB Q 8 HRS .9 NS @ 125 HR 10/22-10/27 Please clarify the etiology of the UTI, if known: [ x ] Kovacs catheter [ ] UTI not related to catheter [ ] Other condition, please specify [ ] Unable to determine (Template Last Revised: June 2020) PIPOD
--- NOTE | 2023-11-01 13:16 | P.PN ---
Subjective Progress Note Date: 10/31/23 Principal diagnosis: Reason for follow-up is ESBL E. coli urinary tract infection Patient is a 68-year-old female with a past medical history significant for hypertension reflux fibromyalgia history of diverticulitis in this patient who electively admitted to the hospital on 10/22/2023 after the patient did have low anterior resection for diverticulosis and rectal prolapse patient subsequently has been in the hospital for postop care patient has developed postop ileus and also UTI with urine culture positive for ESBL E. coli prompted this consultation. On today's evaluation that is 10/31/2023, Patient is afebrile patient is currently on room air and denies having any shortness of breath, the patient denies any chest pain or cough, the patient denies any nausea vomiting abdominal distention and pain has decreased did have a bowel movement feeling better no ur inary symptoms. Patient white count 7.85, creatinine 0 point 7 repeat UA is negative Objective - Vital Signs Vital signs: Vital Signs Temp 99.3 F 10/31/23 07:19 Pulse 104 H 10/31/23 07:19 Resp 20 10/31/23 07:19 BP 145/86 10/31/23 07:19 Pulse Ox 95 10/31/23 10:08 FiO2 Intake & Output 10/30/23 10/31/23 10/31/23 18:59 06:59 18:59 Intake Total 50 Balance 50 Weight 76.2 kg Intake: Oral 50 Other: Voiding Method Toilet Toilet # Voids 2 - Exam GENERAL DESCRIPTION: An elderly female lying in bed in no distress RESPIRATORY SYSTEM: Unlabored breathing , decreased breath sounds at bases HEART: S1 S2 regular rate and rhythm , ABDOMEN: Soft mild distention EXTREMITIES: No edema feet - Labs CBC & Chem 7: 10/31/23 06:07 10/31/23 06:07 Labs: Abnormal Lab Results - Last 24 Hours (Table) 10/30/23 10/31/23 10/31/23 Range/Units 10:00 06:07 06:07 RBC 2.91 L (4.10-5.20) X 10*6/uL Hgb 9.4 L (12.0-15.0) g/dL Hct 27.4 L (37.2-46.3) % MCH 32.3 H (27.0-32.0) pg MPV 8.8 L (9.5-12.2) FL Potassium 3.3 L (3.5-5.5) mmol/L BUN 4.6 L (9.0-27.0) mg/dL BUN/Creatinine Ratio 6.57 L (12.00-20.00) Ratio Calcium 7.9 L (8.7-10.3) mg/dL Urine Ketones 1+ H (Negative) Assessment and Plan (1) Infection due to ESBL-producing Escherichia coli Status: Acute Code(s): A49.8 - OTHER BACTERIAL INFECTIONS OF UNSPECIFIED SITE; Z16.12 - EXTENDED SPECTRUM BETA LACTAMASE (ESBL) RESISTANCE SNOMED Code(s): 925309894 (2) Urinary tract infection Status: Acute Code(s): N39.0 - URINARY TRACT INFECTION, SITE NOT SPECIFIED SNOMED Code(s): 50538042 Plan: 1patient with a positive urine culture with ESBL E. coli in this patient admitted to the hospital for low anterior resection did have a Kovacs catheter placement for 2 days after surgery now with some urinary frequency and flank pain concerning for possible symptomatic urinary tract infection 2-patient repeat UA has been negative more likely mild UTI/cystitis adequately treated no need for antibiotic on discharge Dictation was produced using [employer] dictation software. please excuse any grammatical, word or spelling errors. Time with Patient: Less than 30
== END 2023-10-31 15:19 | disposition home or self-care (01) | DRG 330 ==
LOC: 2ORMAIN 05:34 → 5NMEDONC 13:41
PROVIDERS: ADMIT Surgery; ATTEND Surgery
PROC: 0DTN0ZZ Resection of Sigmoid Colon, Open Approach (ICD-10-PCS; principal; 2023-10-22 07:30)
DX: K57.32 Diverticulitis of large intestine without perforation or abscess without bleeding (principal); F10.139 Alcohol abuse with withdrawal, unspecified; T83.511A Infection and inflammatory reaction due to indwelling urethral catheter, initial encounter; N39.0 Urinary tract infection, site not specified; K56.7 Ileus, unspecified; Z16.12 Extended spectrum beta lactamase (ESBL) resistance; F31.9 Bipolar disorder, unspecified; I10 Essential (primary) hypertension; E66.9 Obesity, unspecified; K62.3 Rectal prolapse; B96.20 Unspecified Escherichia coli [E. coli] as the cause of diseases classified elsewhere; Y73.1 Therapeutic (nonsurgical) and rehabilitative gastroenterology and urology devices associated with adverse incidents; K21.9 Gastro-esophageal reflux disease without esophagitis; M79.7 Fibromyalgia; G47.30 Sleep apnea, unspecified; E86.0 Dehydration; E83.42 Hypomagnesemia; E87.6 Hypokalemia; Z68.28 Body mass index [BMI] 28.0-28.9, adult; Z87.891 Personal history of nicotine dependence; Z86.19 Personal history of other infectious and parasitic diseases; Z88.5 Allergy status to narcotic agent; Z79.899 Other long term (current) drug therapy; Z88.8 Allergy status to other drugs, medicaments and biological substances
CPT/HCPCS: 36410; 71046; 74019; 74177; 76937; 80048; 81001; 81003; 83735; 84132; 85025; 85027; 87070; 87077; 87086; 87186; 87205; 88307; 94640; 94760

== ENCOUNTER → 2024-09-22 | Outpatient (CLI) | payer MEDICARE ==
--- NOTE | 2024-09-22 13:29 | MM ---
Reason for Exam: Screening (asymptomatic). Last mammogram was performed 1 year(s) and 7 month(s) ago. Patient History: Menarche at age 10. First Full-Term at age 17. Left ovary removed at age 49. Right ovary removed at age 49. Hysterectomy at age 49. Postmenopausal. Hormonal Contraceptives for 10 years from age 14 until age 24. Core Biopsy on the Right side. Core Biopsy on the Left side. Excisional Biopsy on the Left side. 09/27/1999, Benign Stereotactic Core Biopsy on the left side. 09/27/1999, Benign Stereotactic Core Biopsy on the right side. Paternal grandmother had breast cancer, age 55. Paternal aunt had breast cancer, age 45. Paternal aunt had breast cancer, age 50. Paternal aunt had breast cancer, age 55. Maternal aunt had breast cancer, age 45. Risk Values: Cata 5 year model risk: 1.9%. NCI Lifetime model risk: 5.2%. Prior Study Comparison: 09/14/2020 Bilateral Screening Mammogram, [facility]. 01/02/2022 Bilateral MG 3D screening mammo w/cad, [facility]. 02/12/2023 Bilateral MG 3D screening mammo w/cad, [facility]. Tissue Density: The breasts are heterogeneously dense, which may obscure small masses. Findings: Analyzed By CAD. A microclip in either breast from prior biopsies. Benign bilateral vascular calcifications. Benign oil cyst calcifications on the left. There is no suspicious group of microcalcifications or new suspicious mass in either breast. Overall Assessment: Benign, BI-RAD 2 Management: Screening Mammogram of both breasts in 1 year. Patient should continue monthly self-breast exams. A clinical breast exam by your physician is recommended on an annual basis. This exam should not preclude additional follow-up of suspicious palpable abnormalities. Note on Cata scores and lifetime risk: 1. A Cata score greater than 3% is considered moderate risk. If this is the case, consider specialist referral to assess eligibility for a risk reducing agent. 2. If overall lifetime risk for the development of breast cancer is 20% or higher, the patient may qualify for future screening with alternating mammogram and breast MRI. [facility], , 09/22/2024 1:27 PM. Electronically signed and approved by: Andre Cheung M.D. Radiologist
== END | disposition home or self-care (01) ==
LOC: RADMAMWWP 11:58
PROVIDERS: ATTEND Family Medicine
DX: Z12.31 Encounter for screening mammogram for malignant neoplasm of breast (principal); R92.333 Mammographic heterogeneous density, bilateral breasts; Z78.0 Asymptomatic menopausal state; Z80.3 Family history of malignant neoplasm of breast
CPT/HCPCS: 77063; 77067